=== PATIENT | male | born 1980 | race Caucasian/White ===

== ENCOUNTER → 2016-10-28 | Outpatient (CLI) | payer OTHER | END | disposition home or self-care (01) | LOC: LABWHC1 10:15 | PROVIDERS: ATTEND Psychiatry & Neurology Pain Medicine | DX: R56.9 Unspecified convulsions (principal); G40.909 Epilepsy, unspecified, not intractable, without status epilepticus | CPT/HCPCS: 36415; 80156; 80177 ==

== ENCOUNTER 2016-11-05 13:41 | Emergency (ER) | payer OTHER ==
[2016-11-05 13:51] LABS: Glucose,Whole Blood 178 mg/dL (75-99)
[2016-11-05] MEDS ORDERED: SODIUM CHLORIDE 0.9% 1,000 ML IV STA (13:55)
[2016-11-05] MEDS ORDERED: levETIRAcetam IV 1,000 MG in SALINE 1 100ML.BAG IVPB STA (13:56)
[2016-11-05 14:04] VITALS: BP 154/89; PULSE 105; RESP 28; TEMP 97.2
[2016-11-05] MEDS ORDERED: ONDANSETRON 4 MG/2 ML VIAL IVP STA (14:21)
[2016-11-05 14:37] LABS: Basophils # (A) 0.1 k/uL (0-0.2); Basophils % (A) 1 %; CH 30.8; CHCM 31.7; Eosinophils # (A) 0.2 k/uL (0-0.7); Eosinophils % (A) 1 %; HCT 55.4 % (39.0-53.0); HDW 2.29; HGB 17.4 gm/dL (13.0-17.5); Luc # (Auto) 0.41; Luc % (Auto) 2; Lymphocytes # (A) 3.3 k/uL (1.0-4.8); Lymphocytes % (A) 18 %; MCH 30.7 pg (25.0-35.0); MCHC 31.4 g/dL (31.0-37.0); MCV 97.8 fL (80.0-100.0); Monocytes # (A) 1.1 k/uL (0-1.0); Monocytes % (A) 6 %; Neutrophils # (A) 13.3 k/uL (1.3-7.7); Neutrophils % (A) 72 %; RBC 5.67 m/uL (4.30-5.90); RDW 12.8 % (11.5-15.5); WBC 18.5 k/uL (3.8-10.6); WBC (Perox) 19.03
[2016-11-05 14:51] LABS: ALT 39 U/L (21-72); AST 35 U/L (17-59); Alcohol <10 mg/dL; Alkaline Phosphatase 88 U/L (38-126); Anion Gap 36 mmol/L; Blood Urea Nitrogen 7 mg/dL (9-20); Calcium 9.8 mg/dL (8.4-10.2); Carbamazepine (Tegretol) 9.3 ug/mL; Chloride 110 mmol/L (98-107); Glucose 179 mg/dL (74-99); Non-African American GFR(MDRD) >60 (>60 ml/min/1.73 sqM); Potassium 3.8 mmol/L (3.5-5.1); Sodium 151 mmol/L (137-145); Total Bilirubin 0.3 mg/dL (0.2-1.3)
[2016-11-05 15:06] LABS: Carbon Dioxide <5 mmol/L (22-30)
--- NOTE | 2016-11-05 15:15 | ED ---
Seizure HPI - General Chief Complaint: Seizure Stated Complaint: unresponsive, poss seizure Source: patient, family, RN notes reviewed, old records reviewed Mode of arrival: ambulatory - History of Present Illness Initial Comments: 36-year-old male with known history of seizure disorder resents to the emergency department with 3 episodes of generalized tonic-clonic seizure activity. First episode lasted approximately 5 minutes with a 10 minute postictal phase, second episode again lasting around 5 minutes with a short postictal period and a third episode in the car on the way to the emergency department. Patient did have some non-generalized seizure-like activity prior to these episodes this morning. Patient voiced complaint of headache to his girlfriend prior to seizure. Patient is normally compliant with medications. Denies missing any doses last dose was at noon today. One episode of vomiting prior to arrival. No other complaints. - Related Data Home Medications Medication Instructions Recorded Confirmed carBAMazepine [TEGretol XR] 100 mg PO Q12H 11/05/16 11/05/16 carBAMazepine [TEGretol XR] 400 mg PO BID 11/05/16 11/05/16 levETIRAcetam [Keppra Xr] 1,500 tab PO BID 11/05/16 11/05/16 Allergies Allergy/AdvReac Type Severity Reaction Status Date / Time shellfish derived [Shellfish] Allergy Swelling Verified 11/05/16 14:57 Review of Systems ROS Statement: Those systems with pertinent positive or pertinent negative responses have been documented in the HPI. ROS Other: All systems not noted in ROS Statement are negative. Past Medical History Past Medical History: Seizure Disorder History of Any Multi-Drug Resistant Organisms: None Reported Past Surgical History: No Surgical Hx Reported Past Psychological History: No Psychological Hx Reported Smoking Status: Former smoker Past Alcohol Use History: None Reported Past Drug Use History: Marijuana General Exam Limitations: altered mental status General appearance: obtunded, in distress, other (Diaphoretic) Head exam: Present: atraumatic, normocephalic Eye exam: Present: normal appearance, PERRL, EOMI, nystagmus (Horizontal nystagmus) ENT exam: Present: normal exam, mucous membranes moist Neck exam: Present: normal inspection Respiratory exam: Present: normal lung sounds bilaterally. Absent: respiratory distress Cardiovascular Exam: Present: normal rhythm, tachycardia GI/Abdominal exam: Present: soft. Absent: distended, tenderness Rectal exam: Present: deferred Extremities exam: Present: normal inspection Back exam: Present: normal inspection Neurological exam: Present: altered, other (No focal neurological deficits, patient is moving all 4 extremities symmetrically.) Psychiatric exam: Present: agitated Skin exam: Present: warm, diaphoretic Course Vital Signs 11/05/16 13:52 Temperature 97.2 F L Pulse Rate 105 H Respiratory 28 H Rate Blood Pressure 154/89 O2 Sat by Pulse 94 L Oximetry - Reevaluation(s) Reevaluation #1: 11/05/16 15:10 Patient is reevaluated at 1410, for T 30, and 1500. Multiple conversations with the patient's family and significant other. Patient's mental status is improving. He is warm and dry heart rate stable. Neurologic examination remains nonfocal. Patient has no complaints. Reevaluation #2: 11/05/16 15:11 Nursing staff state that the patient refuses head CT and is refusing any further treatment or evaluation. Patient is reevaluated at this time. He is alert and oriented 3, stating that he wants to leave and does not want any further testing or intervention. P Medical Decision Making - Medical Decision Making 36-year-old male with known seizure disorder presents in status epilepticus. Patient had multiple episodes of tonic-clonic seizure over the period of approximately 30 minute with alterations in seizure and postictal state. Laboratory studies were obtained in the emergency department and revealed a significant elevation in lactic acidosis consistent with prolonged seizure. Patient receives IV hydration and IV Keppra. While awaiting computed tomography scan patient does regain consciousness and is alert and oriented 3. Patient states he does not want any further treatment or evaluation at this time. Patient is encouraged to remain in the hospital as he has had a prolonged seizure and prolonged postictal state and may require further treatment to control his seizures. He is aware of this stating that he wishes to leave without any further care. Patient is informed that prolonged seizure can and will result in brain damage and even . Patient again voices understanding of this. Patient's mother father at bedside. Despite encouragement from his parents he still refuses to stay. Patient was offered a short stay in the emergency department with IV hydration, IV antiepileptics, and discussion with his neurologist regarding dose adjustment of his medication. He refuses this as well. Patient will leave AGAINST MEDICAL ADVICE , however he does refuse to sign documentation. - Lab Data Result diagrams: 11/05/16 13:45 Lab Results 11/05/16 11/05/16 11/05/16 Range/Units 13:45 13:45 13:49 WBC 18.5 H (3.8-10.6) k/uL RBC 5.67 (4.30-5.90) m/uL Hgb 17.4 (13.0-17.5) gm/dL Hct 55.4 H (39.0-53.0) % MCV 97.8 (80.0-100.0) fL MCH 30.7 (25.0-35.0) pg MCHC 31.4 (31.0-37.0) g/dL RDW 12.8 (11.5-15.5) % Plt Count 201 (150-450) k/uL Neutrophils % 72 % Lymphocytes % 18 % Monocytes % 6 % Eosinophils % 1 % Basophils % 1 % Neutrophils # 13.3 H (1.3-7.7) k/uL Lymphocytes # 3.3 (1.0-4.8) k/uL Monocytes # 1.1 H (0-1.0) k/uL Eosinophils # 0.2 (0-0.7) k/uL Basophils # 0.1 (0-0.2) k/uL POC Glucose (mg/dL) 178 H (75-99) mg/dL POC Glu Crushing Machine Operator ID [place] Armenta Magnesium 3.3 H (1.6-2.3) mg/dL Disposition Clinical Impression: Generalized seizure, Intractable seizure disorder Disposition: Left Against Medical Advice Instructions: Recurrent Seizures in Adults (ED) Referrals: Anika Oneill MD [Primary Care Provider] - 1-2 days Charo Watson MD [STAFF PHYSICIAN] - 1-2 days
== END 2016-11-05 15:18 | disposition left against medical advice (07) ==
LOC: EC 13:41
DX: G40.419 Other generalized epilepsy and epileptic syndromes, intractable, without status epilepticus (principal); R41.82 Altered mental status, unspecified; R61 Generalized hyperhidrosis; H55.00 Unspecified nystagmus; R00.0 Tachycardia, unspecified; R45.1 Restlessness and agitation; Z87.891 Personal history of nicotine dependence; Z79.899 Other long term (current) drug therapy; Z91.013 Allergy to seafood
CPT/HCPCS: 36415; 93005; 80156; 80053; 80177; 83605; 83735; 85025; 80320; 99284; 96365; 96375; 96361; J2405; J1953

== ENCOUNTER 2016-11-13 10:24 | Inpatient (IN) | payer OTHER ==
[2016-11-13] MEDS ORDERED: SODIUM CHLORIDE 0.9% 1,000 ML IV STA ×2 (11:10)
[2016-11-13] MEDS ORDERED: MORPHINE SULFATE 4 MG/ML SYRINGE IV STA (11:10)
[2016-11-13] MEDS ORDERED: ONDANSETRON 4 MG/2 ML VIAL IVP STA (11:10)
[2016-11-13] MEDS ORDERED: MAG HYDROX/AL HYDROX/SIMETH 30 ML, HYOSCYAMINE ELIXIR 10 ML, CIMETIDINE HCL 300 MG, LID... PO STA ×4 (11:12)
[2016-11-13] MEDS ORDERED: hydrALAZINE HCL 20 MG/ML 1 ML VIAL IVP STA ×2 (11:31→13:20)
[2016-11-13 11:33] LABS: Basophils % (A) 0 %; CH 31.9; CHCM 36.7; Eosinophils # (A) 0.1 k/uL (0-0.7); Eosinophils % (A) 1 %; HCT 37.7 % (39.0-53.0); HDW 2.17; HGB 13.8 gm/dL (13.0-17.5); Luc # (Auto) 0.17; Luc % (Auto) 2; Lymphocytes # (A) 0.9 k/uL (1.0-4.8); Lymphocytes % (A) 10 %; MCH 31.9 pg (25.0-35.0); MCHC 36.5 g/dL (31.0-37.0); Mean Platelet Volume 9.5; Monocytes # (A) 0.8 k/uL (0-1.0); Monocytes % (A) 8 %; Neutrophils # (A) 7.6 k/uL (1.3-7.7); Neutrophils % (A) 80 %; RBC 4.32 m/uL (4.30-5.90); RDW 12.5 % (11.5-15.5); WBC 9.5 k/uL (3.8-10.6); WBC (Perox) 9.69
[2016-11-13 11:34] LABS: MCV 87.3 fL (80.0-100.0)
[2016-11-13 11:41] LABS: Calcium 8.7 mg/dL (8.4-10.2); Potassium 4.5 mmol/L (3.5-5.1); Total Bilirubin 0.7 mg/dL (0.2-1.3); Total Protein 6.7 g/dL (6.3-8.2)
[2016-11-13] MEDS ORDERED: SODIUM CHLORIDE 0.9% 2,000 ML IV STA (12:10)
--- NOTE | 2016-11-13 12:19 | XR ---
EXAMINATION TYPE: XR abdomen acute w cxr , 3 VIEWS DATE OF EXAM ORDERED: 11/13/2016 HISTORY: abd pain. COMPARISON: None. FINDINGS: The lungs are clear. Pleural spaces are clear. Heart size is upper limits of normal. Within the abdomen, the abdominal gas pattern is within normal limits. There is no evidence of obstru ction or free air. No unusual calcifications are seen. IMPRESSION: NO ACUTE THORACIC OR ABDOMINAL ABNORMALITY.
--- NOTE | 2016-11-13 13:10 | ED ---
General Adult HPI - General Chief complaint: Abdominal Pain Stated complaint: vomiting Time Seen by Provider: 11/13/16 11:03 Source: patient Mode of arrival: wheelchair Limitations: no limitations - History of Present Illness Initial comments: This 36-year-old white male presents with a complaint of some abdominal pain, back pain, as well as nausea and vomiting. He states that he was in the hospital emergency department on 11/05/2016. He apparently had 3 seizures that day. They were working him up and wanted to admit him to the hospital but he signed out AGAINST MEDICAL ADVICE. He states that he since that time he has had all of these symptoms. They do not appear to be getting any better. He denies any previous problems with his kidneys. He has never been in any renal failure in the past. He states that he has been drinking fluids well and eating okay but will vomit certain foods. He denies any alcohol or drug use. He denies any methanol or ethylene glycol ingestions. He does have the history of seizures but has not had any seizures since being in the ER previously. He denies any other complaints or modifying factors. - Related Data Home Medications Medication Instructions Recorded Confirmed carBAMazepine [TEGretol XR] 100 mg PO Q12H 11/05/16 11/13/16 carBAMazepine [TEGretol XR] 400 mg PO BID 11/05/16 11/13/16 levETIRAcetam [Keppra] 1,500 mg PO BID 11/13/16 11/13/16 Allergies Allergy/AdvReac Type Severity Reaction Status Date / Time shellfish derived [Shellfish] Allergy Swelling Verified 11/13/16 11:23 Review of Systems ROS Statement: Those systems with pertinent positive or pertinent negative responses have been documented in the HPI. ROS Other: All systems not noted in ROS Statement are negative. Past Medical History Past Medical History: Seizure Disorder History of Any Multi-Drug Resistant Organisms: None Reported Past Surgical History: No Surgical Hx Reported Past Psychological History: No Psychological Hx Reported Smoking Status: Current every day smoker Past Drug Use History: None Reported - Past Family History Mother Family Medical History: Pulmonary Embolus Father Family Medical History: Hypertension, Myocardial Infarction ([place]) Additional Family Medical History / Comment(s): Father had a [place] under the age of 60yrs. General Exam - General Exam Comments Initial Comments: GENERAL: The patient is well nourished and well hydrated. VITAL SIGNS: Heart rate, blood pressure, respiratory rate reviewed as recorded in nurse's notes. EYES: Pupils are round and reactive. Extraocular movements are intact. No conjunctival / lid redness or swelling. ENT: No external evidence of injury, swelling, or ecchymosis. Airway is patent. Throat is clear. NECK: Nontender. No swelling or evidence of injury. No subcutaneous emphysema. Trachea is midline. No thyroid mass. HEART: Regular rate and rhythm. Good peripheral pulses. LUNGS/CHEST: Breath sounds clear and equal bilaterally. No rales, rhonchi, or wheezes. No ecchymosis, subcutaneous emphysema, or tenderness. ABDOMEN: There is mild tenderness primarily in the midepigastric region. No palpable masses or organomegaly. No peritoneal signs. No abdominal wall swelling or ecchymosis. The patient also has bilateral flank tenderness minimally. EXTREMITIES: No extremity tenderness. Normal muscle tone and function. No thoracolumbar tenderness. NEUROLOGIC: Sensation is grossly intact. Cranial nerve exam reveals face is symmetrical, tongue is midline, speech is clear. SKIN: No abrasions or ecchymosis is noted. No induration or masses noted. PSYCHIATRIC: Alert and oriented. Appropriate behavior and judgment. Limitations: no limitations Course Vital Signs 11/13/16 11/13/16 11/13/16 10:29 12:44 13:00 Temperature 97.0 F L 98.7 F Pulse Rate 67 67 80 Respiratory 17 18 20 Rate Blood Pressure 199/117 189/117 180/100 O2 Sat by Pulse 95 96 95 Oximetry 11/13/16 14:03 Temperature 98.7 F Pulse Rate 81 Respiratory 20 Rate Blood Pressure 171/101 O2 Sat by Pulse 94 L Oximetry Medical Decision Making - Medical Decision Making The patient was seen and examined. All diagnostics were reviewed. The EKG shows a normal sinus rhythm at a rate of 71. There is no acute ST-T wave changes noted. The MO interval is 190, the QRS duration is 102, and the QTc interval is 471. The laboratory shows a severely elevated creatinine at 19.4. His creatinine 1 week ago was normal. The CO2 is low at 15. Remainder of laboratory is reviewed. The acute abdominal series does not show any acute process. The exact cause of his acute renal failure is not definitively determined. It is felt as though the possibility of rhabdomyolysis certainly is plausible. Additional labs including a CPK are ordered. The case is discussed with Dr. Mendez at 12:30 PM and treatment recommendations are obtained. We will hold off on any dialysis at this time. The case also was discussed with Dr. Burks who is agreeable to admission. - Lab Data Result diagrams: 11/13/16 10:56 11/13/16 10:56 Lab Results 11/13/16 11/13/16 Range/Units 10:56 10:56 WBC 9.5 (3.8-10.6) k/uL RBC 4.32 (4.30-5.90) m/uL Hgb 13.8 D (13.0-17.5) gm/dL Hct 37.7 L (39.0-53.0) % MCV 87.3 D (80.0-100.0) fL MCH 31.9 (25.0-35.0) pg MCHC 36.5 (31.0-37.0) g/dL RDW 12.5 (11.5-15.5) % Plt Count 149 L (150-450) k/uL Neutrophils % 80 % Lymphocytes % 10 % Monocytes % 8 % Eosinophils % 1 % Basophils % 0 % Neutrophils # 7.6 (1.3-7.7) k/uL Lymphocytes # 0.9 L (1.0-4.8) k/uL Monocytes # 0.8 (0-1.0) k/uL Eosinophils # 0.1 (0-0.7) k/uL Basophils # 0.0 (0-0.2) k/uL Sodium 133 L (137-145) mmol/L Potassium 4.5 (3.5-5.1) mmol/L Chloride 92 L (98-107) mmol/L Carbon Dioxide 15 L (22-30) mmol/L Anion Gap 26 mmol/L BUN 88 H* (9-20) mg/dL Creatinine 19.45 H* (0.66-1.25) mg/dL Est GFR (MDRD) Af Amer 3 (>60 ml/min/1.73 sqM) Est GFR (MDRD) Non-Af 3 (>60 ml/min/1.73 sqM) Glucose 86 (74-99) mg/dL Calcium 8.7 (8.4-10.2) mg/dL Total Bilirubin 0.7 (0.2-1.3) mg/dL AST 11 L (17-59) U/L ALT 26 (21-72) U/L Alkaline Phosphatase 79 (38-126) U/L Total Protein 6.7 (6.3-8.2) g/dL Albumin 4.0 (3.5-5.0) g/dL Amylase 49 (30-110) U/L Lipase 50 (23-300) U/L Disposition Clinical Impression: Acute kidney injury, Abdominal pain, Nausea and vomiting, Hypertensive crisis, Marijuana abuse Disposition: ADMITTED IP TO THIS [facility] Condition: Fair Time of Disposition: 13:10 Decision Date: 11/13/16 Decision Time: 13:10
[2016-11-13] MEDS ORDERED: NALOXONE 0.4 MG/ML 1 ML VIAL IV PRN (13:11)
[2016-11-13] MEDS ORDERED: MORPHINE SULFATE 4 MG/ML SYRINGE IV PRN (13:11)
[2016-11-13] MEDS ORDERED: SODIUM BICARBONATE TAB 650 MG TAB PO STA (13:13)
[2016-11-13] MEDS ORDERED: PANTOPRAZOLE 40 MG/10 ML VIAL IV STA (13:32)
[2016-11-13 14:33] LABS: Appearance,Urine Clear (Clear); Bacteria,Urine Rare /hpf; Bilirubin,Urine Negative (Negative); Glucose,Urine (UA) Negative (Negative); Ketones,Urine Trace (Negative); Leukocyte Esterase,Urine Negative (Negative); Mucus,Urine Rare /hpf; Nitrite,Urine Negative (Negative); Particle Count 1216; Protein,Urine 2+ (Negative); RBC,Urine 2 /hpf (0-5); Specific Gravity,Urine 1.005 (1.001-1.035); Squamous Epithelial Cell,Urine <1 /hpf (0-4); UA Billing (MACRO vs. MICRO) MICRO; Urobilinogen,Urine <2.0 mg/dL (<2.0); WBC,Urine 4 /hpf (0-5)
--- NOTE | 2016-11-13 15:05 | US ---
EXAMINATION TYPE: US kidneys/renal and bladder DATE OF EXAM: 11/13/2016 COMPARISON: NONE CLINICAL HISTORY: hugo. EXAM MEASUREMENTS: Right Kidney: 12.7 x 6.5 x 7.2 cm Left Kidney: 14.0 x 6.3 x 5.6 cm Right Kidney: stone identified at mid pole Left Kidney: No hydronephrosis or masses seen, Bladder: empty There is an 8 mm, nonobstructing calculus in the upper pole of the right kidney. The kidneys are othe rwise morphologically normal. IMPRESSION: NONOBSTRUCTING RIGHT-SIDED NEPHROLITHIASIS.
[2016-11-13] MEDS: SODIUM CHLORIDE 0.9% 1,000 ML IV SCH ×2 (15:10→17:21)
[2016-11-13 15:20] LABS: Calcium 8.2 mg/dL (8.4-10.2); Carbamazepine (Tegretol) 8.5 ug/mL; Potassium 4.5 mmol/L (3.5-5.1)
[2016-11-13] MEDS: ONDANSETRON 4 MG/2 ML VIAL IVP PRN ×2 (15:25→22:00)
[2016-11-13 15:33] LABS: Creatine Kinase MB 1.1 ng/mL (0.0-2.4); Troponin I 0.017 ng/mL (0.000-0.034)
[2016-11-13] MEDS: SODIUM BICARBONATE TAB 650 MG TAB PO SCH (17:22)
--- NOTE | 2016-11-13 17:24 | P.HPIM ---
History of Present Illness H&P Date: 11/13/16 Chief Complaint: Difficulty breathing This is a 36-year-old gentleman with history of generalized seizures maintain on tegretol and keepra, apparently has had prolonged period of seizures on last Thursday. Patient however went AGAINST MEDICAL ADVICE home. Thereafter patient has not been his usual self according to his fiance was a bedside. Patient has a long history of seizure disorder and depression. Patient states that he has diffuse abdominal pain no other problems reported. Patient apparently has not been able to tolerate any oral intake and has been vomiting significantly over the same period of time Patient came to the hospital was noted to have a significantly elevated renal function which is new from last Thursday. Patient was noted to have an anion gap metabolic acidosis which was also noted in the laboratory data done last week Patient denies using any illicit drugs or graft urine drug screen was noted to be positive for opiates and marijuana No fevers headaches blurry vision nausea chest pain diarrhea lower extremity edema next tetanus is reported Patient name complaints are some difficulty breathing Review of Systems All systems: negative (noted in HPI) Past Medical History Past Medical History: Seizure Disorder Additional Past Medical History / Comment(s): Last seizures 11/05/16 x 3. History of Any Multi-Drug Resistant Organisms: None Reported Past Surgical History: No Surgical Hx Reported Past Anesthesia/Blood Transfusion Reactions: No Reported Reaction Past Psychological History: No Psychological Hx Reported Smoking Status: Current every day smoker Past Drug Use History: None Reported - Past Family History Mother Family Medical History: Pulmonary Embolus Father Family Medical History: Hypertension, Myocardial Infarction ([place]) Additional Family Medical History / Comment(s): Father had a [place] under the age of 60yrs. Medications and Allergies Home Medications Medication Instructions Recorded Confirmed Type carBAMazepine [TEGretol XR] 100 mg PO Q12H 11/05/16 11/13/16 History carBAMazepine [TEGretol XR] 400 mg PO BID 11/05/16 11/13/16 History levETIRAcetam [Keppra] 1,500 mg PO BID 11/13/16 11/13/16 History Allergies Allergy/AdvReac Type Severity Reaction Status Date / Time shellfish derived [Shellfish] Allergy Swelling Verified 11/13/16 11:23 Physical Exam Vitals: Vital Signs Temp Pulse Pulse Resp BP BP Pulse Ox 11/13/16 15:35 89 20 11/13/16 15:26 97.8 F 89 20 193/109 96 11/13/16 15:11 98.6 F 80 18 178/98 95 11/13/16 14:03 98.7 F 81 20 171/101 94 L 11/13/16 13:00 80 20 180/100 95 11/13/16 12:44 98.7 F 67 18 189/117 96 11/13/16 10:29 97.0 F L 67 17 199/117 95 Intake and Output 11/13/16 11/13/16 11/13/16 06:59 14:59 22:59 Intake Total 2350 Balance 2350 Intake: Intake, IV Titration 2350 Amount Sodium Chloride 0.9% 1, 200 000 ml @ 100 mls/hr IV . Q10H STA Rx#:[id number] Sodium Chloride 0.9% 1, 150 000 ml @ 50 mls/hr IV . Q20H [facility] Rx#:[id number] Sodium Chloride 0.9% 1, 1000 000 ml @ 999 mls/hr IV . Q1H1M STA Rx#:[id number] Sodium Chloride 0.9% 2, 1000 000 ml @ 999 mls/hr IV . Q2H1M STA Rx#:[id number] Other: Weight 90.718 kg Patient Weight 11/14/16 06:59 Weight 90.718 kg Physical exam Gen. appearance oriented 3 in no distress Neck is supple no JVD Lungs diminished breath sounds at the bases trace crackles Patient appears anxious Heart S1-S2 heard regular rate and rhythm no murmurs appreciated Abdomen is soft nontender no organomegaly bowel sounds are intact Neurologically cranial nerves II-12 grossly intact no focal motor or sensory deficits noted Skin no abnormalities appreciated Results CBC & Chem 7: 11/13/16 10:56 11/13/16 14:54 Labs: Abnormal Lab Results - Last 24 Hours (Table) 11/13/16 11/13/16 11/13/16 Range/Units 10:56 10:56 14:07 Hct 37.7 L (39.0-53.0) % Plt Count 149 L (150-450) k/uL Lymphocytes # 0.9 L (1.0-4.8) k/uL Sodium 133 L (137-145) mmol/L Chloride 92 L (98-107) mmol/L Carbon Dioxide 15 L (22-30) mmol/L BUN 88 H* (9-20) mg/dL Creatinine 19.45 H* (0.66-1.25) mg/dL Calcium (8.4-10.2) mg/dL AST 11 L (17-59) U/L Urine Protein 2+ H (Negative) Urine Ketones Trace H (Negative) Urine Bacteria Rare H (None) /hpf Urine Mucus Rare H (None) /hpf Urine Opiates Screen (NotDetected) U Marijuana (THC) Screen (NotDetected) 11/13/16 11/13/16 Range/Units 14:07 14:54 Hct (39.0-53.0) % Plt Count (150-450) k/uL Lymphocytes # (1.0-4.8) k/uL Sodium 136 L (137-145) mmol/L Chloride 97 L (98-107) mmol/L Carbon Dioxide 15 L (22-30) mmol/L BUN 85 H* (9-20) mg/dL Creatinine 18.40 H* (0.66-1.25) mg/dL Calcium 8.2 L (8.4-10.2) mg/dL AST (17-59) U/L Urine Protein (Negative) Urine Ketones (Negative) Urine Bacteria (None) /hpf Urine Mucus (None) /hpf Urine Opiates Screen Detected H (NotDetected) U Marijuana (THC) Screen Detected H (NotDetected) Thrombosis Risk Factor Assmnt - Choose All That Apply Any of the Below Risk Factors Present?: Yes Each Factor Represents 1 point: Obesity (BMI >25) Other Risk Factors: No Other congenital or acquired thrombophilia - If yes, enter type in comment: No Thrombosis Risk Factor Assessment Total Risk Factor Score: 1 Thrombosis Risk Factor Assessment Level: Low Risk Assessment and Plan Plan: #1 acute kidney injury unknown etiology #2 seizure disorder with prolonged seizure episode a week ago #3 anxiety #4 history of depression #5 large anion gap metabolic acidosis which is likely due to high BUN Plan Continue with IV hydration Patient's bladder ultrasound is noted UAs noted a urine protein and creatinine ratio will be done Drug screen was noted discussed the case with the family A nephrology consultation will also be obtained
[2016-11-13] MEDS: ACETAMINOPHEN TAB 325 MG TAB PO PRN ×2 (17:39→23:10)
[2016-11-13] MEDS: NITROGLYCERIN OINT 1 INCH/GM PACKET TOPICAL SCH (19:07)
[2016-11-14] MEDS: SODIUM BICARBONATE TAB 650 MG TAB PO SCH ×4 (04:24→20:51)
[2016-11-14] MEDS: NITROGLYCERIN OINT 1 INCH/GM PACKET TOPICAL SCH ×3 (04:25→17:31)
[2016-11-14 06:54] LABS: Calcium 8.2 mg/dL (8.4-10.2); Magnesium 2.3 mg/dL (1.6-2.3); Potassium 4.8 mmol/L (3.5-5.1)
[2016-11-14 07:09] LABS: Phosphorous 9.9 mg/dL (2.5-4.5)
[2016-11-14] MEDS: IPRATROPIUM-ALBUTEROL 3 ML NEB INHALATION PRN ×2 (07:50→20:01)
[2016-11-14 08:30] LABS: Ethanol Negative (Negative); Isopropanol Negative (Negative)
[2016-11-14] MEDS ORDERED: ENOXAPARIN 40 MG/0.4 ML SYRINGE SQ SCH (09:00)
[2016-11-14] MEDS ORDERED: PANTOPRAZOLE 40 MG/10 ML VIAL IV SCH (09:00)
--- NOTE | 2016-11-14 09:45 | P.NPCON ---
History of Present Illness - Reason for Consult acute renal failure - History of Present Illness Reason for consultation: Acute kidney injury History of present illness: Patient is a 36-year-old male seen in renal consultation for acute kidney injury. His baseline creatinine is near 1 and was elevated at 19.4 on admission. It is 18.7 today. Patient was recently admitted about a week ago for seizures. Since discharge he hasn't been eating and drinking much at all. He's been having episodes of vomiting almost on a daily basis. Denies any diarrhea. He also admits to taking 2 doses of Motrin 800 mg in the past week. He denies any difficulty with urination. No hematuria or dysuria. Denies any family history of renal disease. No seizure episodes in the last week. He denies any form of alcohol intake and denies any suicidal ideation. His urine output overnight was 400 mL. He refused a Kruger catheter placement. He remains acidotic with a bicarb level of 13 this morning. His CK level is 128. Urinalysis reveals no evidence of hematuria. Proteinuria noted. Renal ultrasound revealed no evidence of hydronephrosis. Blood pressure was elevated on admission with systolic blood pressure in the 190s. Better controlled now. Vital signs are stable. General: The patient appeared well nourished and normally developed. HEENT: Head exam is unremarkable. Neck is without jugular venous distension. LUNGS: Lungs are clear to auscultation and percussion. Breath sounds decreased. HEART: Rate and Rhythm are regular. First and second heart sounds normal. No murmurs, rubs or gallops. ABDOMEN: Abdominal exam reveals normal bowel sounds. Non-tender and non- distended. No evidence of peritonitis. EXTREMITITES: No clubbing, cyanosis, or edema. Past Medical History Past Medical History: Seizure Disorder Additional Past Medical History / Comment(s): Last seizures 11/05/16 x 3. History of Any Multi-Drug Resistant Organisms: None Reported Past Surgical History: No Surgical Hx Reported Past Anesthesia/Blood Transfusion Reactions: No Reported Reaction Past Psychological History: No Psychological Hx Reported Smoking Status: Current every day smoker Past Drug Use History: None Reported - Past Family History Mother Family Medical History: Pulmonary Embolus Father Family Medical History: Hypertension, Myocardial Infarction ([place]) Additional Family Medical History / Comment(s): Father had a [place] under the age of 60yrs. Medications and Allergies Home Medications Medication Instructions Recorded Confirmed Type carBAMazepine [TEGretol XR] 100 mg PO Q12H 11/05/16 11/13/16 History carBAMazepine [TEGretol XR] 400 mg PO BID 11/05/16 11/13/16 History levETIRAcetam [Keppra] 1,500 mg PO BID 11/13/16 11/13/16 History Allergies Allergy/AdvReac Type Severity Reaction Status Date / Time shellfish derived [Shellfish] Allergy Swelling Verified 11/13/16 11:23 Physical Exam Vitals: Vital Signs Temp Pulse Pulse Resp BP BP Pulse Ox 11/14/16 08:00 96.3 F L 85 18 169/97 95 11/14/16 07:53 98 11/14/16 07:51 80 14 11/14/16 05:59 96.9 F L 83 18 165/93 92 L 11/14/16 05:36 20 90 L 11/14/16 04:00 82 20 157/88 93 L 11/14/16 00:00 79 19 169/99 96 11/13/16 20:00 81 19 162/89 98 11/13/16 15:35 89 20 11/13/16 15:26 97.8 F 89 20 193/109 96 11/13/16 15:11 98.6 F 80 18 178/98 95 11/13/16 14:03 98.7 F 81 20 171/101 94 L 11/13/16 13:00 80 20 180/100 95 11/13/16 12:44 98.7 F 67 18 189/117 96 11/13/16 10:29 97.0 F L 67 17 199/117 95 Intake and Output 11/13/16 11/14/16 11/14/16 22:59 06:59 14:59 Intake Total 2530 500 60 Output Total 350 50 Balance 2180 450 60 Intake: IV 500 Sodium Chloride 0.9% 1, 500 000 ml @ 50 mls/hr IV . Q20H [facility] Rx#:[id number] Intake, IV Titration 2350 Amount Sodium Chloride 0.9% 1, 200 000 ml @ 100 mls/hr IV . Q10H [facility] Rx#:[id number] Sodium Chloride 0.9% 1, 150 000 ml @ 50 mls/hr IV . Q20H [facility] Rx#:[id number] Sodium Chloride 0.9% 1, 1000 000 ml @ 999 mls/hr IV . Q1H1M [facility] Rx#:[id number] Sodium Chloride 0.9% 2, 1000 000 ml @ 999 mls/hr IV . Q2H1M [facility] Rx#:[id number] Oral 180 60 Output: Urine 350 Emesis 50 Other: Voiding Method Urinal Urinal Urinal Weight 102.7 kg Results - Lab Results Most recent lab results Calcium 8.2 mg/dL (8.4-10.2) L 11/14/16 06:03 Phosphorus 9.9 mg/dL (2.5-4.5) H* 11/14/16 06:03 Magnesium 2.3 mg/dL (1.6-2.3) 11/14/16 06:03 11/13/16 10:56 11/14/16 06:03 Assessment and Plan Plan: Assessment: #1. Acute kidney injury secondary to ischemic ATN secondary to severe intravascular volume depletion from vomiting, poor oral intake and use of NSAIDs. Baseline creatinine is 1 and elevated at 19.4 on admission. It is 18.7 today. Urinalysis reveals no evidence of hematuria. Proteinuria can be nonspecific in the setting of acute kidney injury. No evidence of hydronephrosis. Urine eosinophils negative. #2. Anion gap metabolic acidosis secondary to acute kidney injury. Alcohol levels have been negative. Lactic acid level normal. No evidence of DKA. #3. Hyperphosphatemia secondary to acute kidney injury. #4. Hypertension. Uncontrolled. #5. History of seizures. Plan: Continue normal saline to be run at 50 mL an hour. Maintain oral sodium bicarbonate 1300 mg 3 times daily. Check serologies including hepatitis panel, ILDEFONSO, electrophoresis studies. Strict I's and os. Add PhosLo 667 mg 3 times daily with meals. Add amlodipine 5 mg once daily. I discussed with the patient and his mother the need for renal replacement therapy due to severe renal failure and low urine output. Renal replacement therapy will also help with metabolic control. Consult vascular surgery for catheter placement. First treatment of hemodialysis today with low blood flows and no ultrafiltration. Reassess again tomorrow. Thank you for the consultation. I will continue to follow the patient with you during his hospital stay.
[2016-11-14] MEDS: ONDANSETRON 4 MG/2 ML VIAL IVP PRN (10:16)
--- NOTE | 2016-11-14 10:36 | P.PN ---
Subjective This is a 36-year-old gentleman with history of generalized seizures maintain on tegretol and keepra, apparently has had prolonged period of seizures on last Thursday. Patient however went AGAINST MEDICAL ADVICE home. Thereafter patient has not been his usual self according to his fiance was a bedside. Patient has a long history of seizure disorder and depression. Patient states that he has diffuse abdominal pain no other problems reported. Patient apparently has not been able to tolerate any oral intake and has been vomiting significantly over the same period of time Patient came to the hospital was noted to have a significantly elevated renal function which is new from last Thursday. Patient was noted to have an anion gap metabolic acidosis which was also noted in the laboratory data done last week Patient denies using any illicit drugs or graft urine drug screen was noted to be positive for opiates and marijuana No fevers headaches blurry vision nausea chest pain diarrhea lower extremity edema next tetanus is reported Patient name complaints are some difficulty breathing 77 2016 States that his breathing is improved today Denies having any headaches blurry vision nausea vomiting diarrhea does have intermittent episodes of queasiness however is able to tolerate breakfast today Objective - Vital Signs Vital signs: Vital Signs Temp 96.3 F L 11/14/16 08:00 Pulse 80 11/14/16 08:01 Resp 14 11/14/16 08:01 BP 169/97 11/14/16 08:00 Pulse Ox 95 11/14/16 08:00 Intake & Output 11/13/16 11/14/16 11/14/16 18:59 06:59 18:59 Intake Total 2530 500 60 Output Total 400 Balance 2530 100 60 Weight 90.718 kg 102.7 kg Intake: IV 500 Sodium Chloride 0.9% 1, 500 000 ml @ 50 mls/hr IV . Q20H [facility] Rx#:[id number] Intake, IV Titration 2350 Amount Sodium Chloride 0.9% 1, 200 000 ml @ 100 mls/hr IV . Q10H [facility] Rx#:[id number] Sodium Chloride 0.9% 1, 150 000 ml @ 50 mls/hr IV . Q20H [facility] Rx#:[id number] Sodium Chloride 0.9% 1, 1000 000 ml @ 999 mls/hr IV . Q1H1M [facility] Rx#:[id number] Sodium Chloride 0.9% 2, 1000 000 ml @ 999 mls/hr IV . Q2H1M [facility] Rx#:[id number] Oral 180 60 Output: Urine 350 Emesis 50 Other: Voiding Method Urinal Urinal - Exam Physical exam Gen. appearance oriented 3 in no distress Neck is supple no JVD Lungs good air entry clear to auscultation no rhonchi or wheezing Heart S1-S2 heard regular rate and rhythm no murmurs appreciated Abdomen is soft nontender no organomegaly bowel sounds are intact Neurologically cranial nerves II-12 grossly intact no focal motor or sensory deficits noted Skin no abnormalities appreciated - Labs CBC & Chem 7: 11/13/16 10:56 11/14/16 06:03 Labs: Abnormal Lab Results - Last 24 Hours (Table) 11/13/16 11/13/16 11/13/16 Range/Units 10:56 10:56 14:07 Hct 37.7 L (39.0-53.0) % Plt Count 149 L (150-450) k/uL Lymphocytes # 0.9 L (1.0-4.8) k/uL Sodium 133 L (137-145) mmol/L Chloride 92 L (98-107) mmol/L Carbon Dioxide 15 L (22-30) mmol/L BUN 88 H* (9-20) mg/dL Creatinine 19.45 H* (0.66-1.25) mg/dL Calcium (8.4-10.2) mg/dL Phosphorus (2.5-4.5) mg/dL AST 11 L (17-59) U/L Urine Protein 2+ H (Negative) Urine Ketones Trace H (Negative) Urine Bacteria Rare H (None) /hpf Urine Mucus Rare H (None) /hpf U Random Total Protein (<12) mg/dL Urine Opiates Screen (NotDetected) U Marijuana (THC) Screen (NotDetected) 11/13/16 11/13/16 11/13/16 Range/Units 14:07 14:54 19:00 Hct (39.0-53.0) % Plt Count (150-450) k/uL Lymphocytes # (1.0-4.8) k/uL Sodium 136 L (137-145) mmol/L Chloride 97 L (98-107) mmol/L Carbon Dioxide 15 L (22-30) mmol/L BUN 85 H* (9-20) mg/dL Creatinine 18.40 H* (0.66-1.25) mg/dL Calcium 8.2 L (8.4-10.2) mg/dL Phosphorus (2.5-4.5) mg/dL AST (17-59) U/L Urine Protein (Negative) Urine Ketones (Negative) Urine Bacteria (None) /hpf Urine Mucus (None) /hpf U Random Total Protein 152 H (<12) mg/dL Urine Opiates Screen Detected H (NotDetected) U Marijuana (THC) Screen Detected H (NotDetected) 11/14/16 Range/Units 06:03 Hct (39.0-53.0) % Plt Count (150-450) k/uL Lymphocytes # (1.0-4.8) k/uL Sodium 135 L (137-145) mmol/L Chloride (98-107) mmol/L Carbon Dioxide 13 L (22-30) mmol/L BUN 88 H* (9-20) mg/dL Creatinine 18.77 H* (0.66-1.25) mg/dL Calcium 8.2 L (8.4-10.2) mg/dL Phosphorus 9.9 H* (2.5-4.5) mg/dL AST (17-59) U/L Urine Protein (Negative) Urine Ketones (Negative) Urine Bacteria (None) /hpf Urine Mucus (None) /hpf U Random Total Protein (<12) mg/dL Urine Opiates Screen (NotDetected) U Marijuana (THC) Screen (NotDetected) Assessment and Plan Plan: #1 acute kidney injury unknown etiology #2 seizure disorder with prolonged seizure episode a week ago #3 anxiety #4 history of depression Plan Patient is to undergo hemodialysis. GN workup was initiated by nephrology Breathing treatments Discussed the case with the patient. Vascular surgery consultation Start the patient on a 75% Tegretol dose after hemodialysis
[2016-11-14 11:08] LABS: Hepatitis B Surface Ag Index 0.04
[2016-11-14 11:14] LABS: Hepatitis B Core IgM Index 0.01
[2016-11-14 11:25] LABS: Hepatitis C Virus IgG Ab Negative (Negative); Hepatitis C Virus IgG Index 0.02
[2016-11-14] MEDS: ACETAMINOPHEN TAB 325 MG TAB PO PRN ×3 (11:47→19:51)
[2016-11-14] MEDS: CALCIUM ACETATE 667 MG CAP PO SCH ×2 (11:48→20:50)
[2016-11-14] MEDS: amLODIPine 5 MG TAB PO SCH (11:48)
[2016-11-14] MEDS: SODIUM CHLORIDE 0.9% 1,000 ML IV SCH (15:42)
[2016-11-14] MEDS ORDERED: IV FLUID CONTINUATION 1,000 ML IV ONE (18:41)
[2016-11-14] MEDS ORDERED: LIDOCAINE 2% INJ 20 MG/ML SQ ONE (19:08)
--- NOTE | 2016-11-14 19:23 | P.GSCN ---
History of Present Illness History of present illness: 36 white male, history of acute kidney injury with high BUN/creatinine I was consulted for placement of a dialysis catheter and graft medical history No history of diabetes coronary artery disease Surgical history no history of any major surgical illness On examination neck is supple no bruit appreciated Chest clear first and second sound normal Abdomen soft nontender Vascular examination brachial radial femoral pulses are present i Impression acute renal failure plan is placement of the dialysis catheter risk and complication discussed Past Medical History Past Medical History: Seizure Disorder Additional Past Medical History / Comment(s): Last seizures 11/05/16 x 3. History of Any Multi-Drug Resistant Organisms: None Reported Past Surgical History: No Surgical Hx Reported Past Anesthesia/Blood Transfusion Reactions: No Reported Reaction Past Psychological History: No Psychological Hx Reported Smoking Status: Current every day smoker Past Drug Use History: None Reported - Past Family History Mother Family Medical History: Pulmonary Embolus Father Family Medical History: Hypertension, Myocardial Infarction ([place]) Additional Family Medical History / Comment(s): Father had a [place] under the age of 60yrs. Medications and Allergies Home Medications Medication Instructions Recorded Confirmed Type carBAMazepine [TEGretol XR] 100 mg PO Q12H 11/05/16 11/13/16 History carBAMazepine [TEGretol XR] 400 mg PO BID 11/05/16 11/13/16 History levETIRAcetam [Keppra] 1,500 mg PO BID 11/13/16 11/13/16 History Allergies Allergy/AdvReac Type Severity Reaction Status Date / Time shellfish derived [Shellfish] Allergy Swelling Verified 11/13/16 11:23 Surgical - Exam Vital Signs Temp Pulse Resp BP Pulse Ox 97.0 F L 67 17 199/117 95 11/13/16 10:29 11/13/16 10:29 11/13/16 10:29 11/13/16 10:29 11/13/16 10:29 Results - Labs 11/13/16 10:56 11/14/16 06:03 Abnormal Lab Results - Last 24 Hours (Table) 11/13/16 11/14/16 11/14/16 Range/Units 19:00 06:03 06:03 Sodium 135 L (137-145) mmol/L Carbon Dioxide 13 L (22-30) mmol/L BUN 88 H* (9-20) mg/dL Creatinine 18.77 H* (0.66-1.25) mg/dL Calcium 8.2 L (8.4-10.2) mg/dL Phosphorus 9.9 H* (2.5-4.5) mg/dL Total Protein (PEP) 5.9 L (6.2-8.2) g/dL U Random Total Protein 152 H (<12) mg/dL Diabetes panel 11/14/16 Range/Units 06:03 Sodium 135 L (137-145) mmol/L Potassium 4.8 (3.5-5.1) mmol/L Chloride 99 (98-107) mmol/L Carbon Dioxide 13 L (22-30) mmol/L BUN 88 H* (9-20) mg/dL Creatinine 18.77 H* (0.66-1.25) mg/dL Glucose 75 (74-99) mg/dL Calcium 8.2 L (8.4-10.2) mg/dL Calcium panel 11/14/16 Range/Units 06:03 Calcium 8.2 L (8.4-10.2) mg/dL Phosphorus 9.9 H* (2.5-4.5) mg/dL Pituitary panel 11/14/16 Range/Units 06:03 Sodium 135 L (137-145) mmol/L Potassium 4.8 (3.5-5.1) mmol/L Chloride 99 (98-107) mmol/L Carbon Dioxide 13 L (22-30) mmol/L BUN 88 H* (9-20) mg/dL Creatinine 18.77 H* (0.66-1.25) mg/dL Glucose 75 (74-99) mg/dL Calcium 8.2 L (8.4-10.2) mg/dL Adrenal panel 11/14/16 Range/Units 06:03 Sodium 135 L (137-145) mmol/L Potassium 4.8 (3.5-5.1) mmol/L Chloride 99 (98-107) mmol/L Carbon Dioxide 13 L (22-30) mmol/L BUN 88 H* (9-20) mg/dL Creatinine 18.77 H* (0.66-1.25) mg/dL Glucose 75 (74-99) mg/dL Calcium 8.2 L (8.4-10.2) mg/dL
--- NOTE | 2016-11-14 19:26 | P.PCN ---
Preoperative Diagnosis: Postoperative Diagnosis: Procedure(s) Performed: Implants: Indications for Procedure: Operative Findings: Description of Procedure: Noses acute renal failure Procedure this point of 20 same dialysis catheter right femoral approach ultrasound guided Patient brought to the Pick Up Operator, right groin were prepped and draped applied in standard manner ultrasound-guided needle was introduced to right femoral vein micropuncture guidewire was passed and 4-Macedonian dilator advanced. The top of the guidewire then regular guidewire was passed and dilator were advanced top of guidewire and then 20 same dialysis catheter right vas on the top of the guidewire there was a good flow noted flushed with heparin saline and Hep-Lock with heparin secured with 3-0 nylon dressing applied patient for the procedure well
[2016-11-14] MEDS: carBAMazepine 200 MG TAB PO SCH (20:53)
[2016-11-14] MEDS: hydrALAZINE HCL 20 MG/ML 1 ML VIAL IVP PRN (21:49)
[2016-11-15] MEDS: IPRATROPIUM-ALBUTEROL 3 ML NEB INHALATION PRN ×3 (00:08→23:43)
[2016-11-15] MEDS: ACETAMINOPHEN TAB 325 MG TAB PO PRN ×3 (00:27→23:43)
[2016-11-15] MEDS: NITROGLYCERIN OINT 1 INCH/GM PACKET TOPICAL SCH ×4 (00:28→17:28)
[2016-11-15] MEDS: CALCIUM ACETATE 667 MG CAP PO SCH ×3 (06:41→17:24)
[2016-11-15] MEDS: PANTOPRAZOLE 40 MG TABLET PO SCH (06:41)
[2016-11-15 07:00] LABS: Calcium 8.3 mg/dL (8.4-10.2); Potassium 4.3 mmol/L (3.5-5.1)
--- NOTE | 2016-11-15 08:38 | P.PN ---
Subjective Principal diagnosis: This is a 36-year-old patient with dialysis dependent acute kidney injury from volume depletion and nonsteroidals. He had his first dialysis yesterday late last night 11:30 PM. His main 7 50 mL of urine since then. He is not feeling significantly improved though. Feels tired and fatigued. No nausea vomiting had a good appetite but after taking his morning pills on an empty stomach he first and nauseated. Last night he had good general though. Denies any fever chills shortness of breath. Has mild cough. No hemoptysis epistaxis. He has a right groin Rhys catheter Objective - Vital Signs Vital signs: Vital Signs Temp 98.5 F 11/15/16 04:00 Pulse 92 11/15/16 07:40 Resp 18 11/15/16 04:00 BP 144/85 11/15/16 04:00 Pulse Ox 95 11/15/16 07:29 Intake & Output 11/14/16 11/15/16 11/15/16 18:59 06:59 18:59 Intake Total 520 550 Output Total 500 250 Balance 20 300 Weight 101.7 kg Intake: IV 100 550 Sodium Chloride 0.9% 1, 550 000 ml @ 50 mls/hr IV . Q20H [facility] Rx#:[id number] Oral 420 Output: Urine 500 250 Other: Voiding Method Urinal Urinal # Voids 2 1 And examinations awake alert oriented. Seems to be comfortable. HEENT exam no JVP neck is supple no facial asymmetry Lungs are significant for fine crackles at both bases not clear but cough. Good air entry no dullness to percussion. Recent x-ray was done on 11/13/2016 2 days ago and does not show any pulmonary edema Heart sounds are unremarkable for any murmur rub gallop Abdomen soft nontender no masses felt Extremity exam was trace edema Neurologically awake alert oriented no asterixis. No focal motor deficit. - Labs CBC & Chem 7: 11/13/16 10:56 11/15/16 06:27 Labs: Abnormal Lab Results - Last 24 Hours (Table) 11/14/16 11/15/16 Range/Units 06:03 06:27 Carbon Dioxide 21 L (22-30) mmol/L BUN 68 H (9-20) mg/dL Creatinine 13.58 H* (0.66-1.25) mg/dL Glucose 106 H (74-99) mg/dL Calcium 8.3 L (8.4-10.2) mg/dL Total Protein (PEP) 5.9 L (6.2-8.2) g/dL Assessment and Plan Plan: Impression. 1. ATN secondary to intravascular 1 depletion from vomiting and use of nonsteroidals. Had one dialysis on 11/14/2016. After that he is making fair amount of urine. Currently not uremic except for fatigue. Will hold off dialysis today and reassess with a chest x-ray and see if he has any congestive heart failure. 2. History of seizure disorder but no suggestion of a rhabdomyolysis. 3. Bilateral fine crackles rule out congestive heart failure. 4. Mild degree of gap acidosis secondary to renal failure improving bicarb is 21. 5. Hyperphosphatemia secondary to acute kidney injury on calcium acetate 6. 2 g of proteinuria, ILDEFONSO negative C3-C4 normal. We will re-assess this. Recommendation. Will hold off dialysis, unless there is congestive heart failure on the chest x- ray. Obtain chest x-ray. Possible congestive heart failure Repeat his protein to creatinine ratio in 2-3 days. Maintain sodium bicarb and adjust dose in a day or 2 based on serum bicarb Watch phosphorus
--- NOTE | 2016-11-15 09:16 | XR ---
EXAMINATION TYPE: XR chest 2V DATE OF EXAM: 11/15/2016 COMPARISON: 05/23/2015 HISTORY: 36-year-old male CHF, kidney failure TECHNIQUE: Frontal and lateral views FINDINGS: Heart is normal size. Mild interstitial prominence with patchy bibasilar opacities. Suggestion of sma ll effusions on the lateral view. IMPRESSION: Mild interstitial prominence, patchy bibasilar opacities, and suggestion of small effusions on the la teral view. Fluid overload with pulmonary vascular congestion not excluded. Correlate to exclude biba silar infiltrates.
[2016-11-15] MEDS: carBAMazepine 200 MG TAB PO SCH ×2 (12:58→20:58)
[2016-11-15] MEDS: ENOXAPARIN 30 MG/0.3 ML SYRINGE SQ SCH (12:59)
[2016-11-15] MEDS: levETIRAcetam 500 MG TAB PO SCH (13:00)
[2016-11-15] MEDS: SODIUM BICARBONATE TAB 650 MG TAB PO SCH ×3 (13:01→20:58)
[2016-11-15] MEDS: amLODIPine 5 MG TAB PO SCH (13:02)
--- NOTE | 2016-11-15 17:55 | P.PN ---
Subjective This is a 36-year-old gentleman with history of generalized seizures maintain on tegretol and keepra, apparently has had prolonged period of seizures on last Thursday. Patient however went AGAINST MEDICAL ADVICE home. Thereafter patient has not been his usual self according to his fiance was a bedside. Patient has a long history of seizure disorder and depression. Patient states that he has diffuse abdominal pain no other problems reported. Patient apparently has not been able to tolerate any oral intake and has been vomiting significantly over the same period of time Patient came to the hospital was noted to have a significantly elevated renal function which is new from last Thursday. Patient was noted to have an anion gap metabolic acidosis which was also noted in the laboratory data done last week Patient denies using any illicit drugs or graft urine drug screen was noted to be positive for opiates and marijuana No fevers headaches blurry vision nausea chest pain diarrhea lower extremity edema next tetanus is reported Patient name complaints are some difficulty breathing 77 2016 States that his breathing is improved today Denies having any headaches blurry vision nausea vomiting diarrhea does have intermittent episodes of queasiness however is able to tolerate breakfast today 11/15/2016 States to be doing better today Underwent one session of hemodialysis had a femoral temporary dialysis catheter No fevers chills nausea vomiting is reported states that he had neck pain however is improved overnight Objective - Vital Signs Vital signs: Vital Signs Temp 98.5 F 11/15/16 08:00 Pulse 89 11/15/16 16:00 Resp 16 11/15/16 16:00 BP 178/113 11/15/16 16:00 Pulse Ox 96 11/15/16 16:00 Intake & Output 11/14/16 11/15/16 11/15/16 18:59 06:59 18:59 Intake Total 520 550 200 Output Total 500 250 300 Balance 20 300 -100 Weight 101.7 kg 101.7 kg Intake: IV 100 550 Sodium Chloride 0.9% 1, 550 000 ml @ 50 mls/hr IV . Q20H [facility] Rx#:[id number] Oral 420 200 Output: Urine 500 250 250 Emesis 50 Other: Voiding Method Urinal Urinal Urinal # Voids 2 1 1 - Exam Physical exam Gen. appearance oriented 3 in no distress Neck is supple no JVD Lungs good air entry clear to auscultation no rhonchi or wheezing Heart S1-S2 heard regular rate and rhythm no murmurs appreciated Abdomen is soft nontender no organomegaly bowel sounds are intact Neurologically cranial nerves II-12 grossly intact no focal motor or sensory deficits noted Skin no abnormalities appreciated - Labs CBC & Chem 7: 11/13/16 10:56 11/15/16 06:27 Labs: Abnormal Lab Results - Last 24 Hours (Table) 11/15/16 Range/Units 06:27 Carbon Dioxide 21 L (22-30) mmol/L BUN 68 H (9-20) mg/dL Creatinine 13.58 H* (0.66-1.25) mg/dL Glucose 106 H (74-99) mg/dL Calcium 8.3 L (8.4-10.2) mg/dL Assessment and Plan Plan: #1 acute kidney injury unknown etiology #2 seizure disorder with prolonged seizure episode a week ago #3 anxiety #4 history of depression Plan Underwent one session of hemodialysis Continue ongoing care continue monitoring labs Clinically does not appear to be in fluid overload
[2016-11-15] MEDS: hydrALAZINE HCL 20 MG/ML 1 ML VIAL IVP PRN (21:07)
[2016-11-16] MEDS: NITROGLYCERIN OINT 1 INCH/GM PACKET TOPICAL SCH ×5 (04:24→22:26)
[2016-11-16] MEDS: ONDANSETRON 4 MG/2 ML VIAL IVP PRN ×2 (05:06→17:39)
[2016-11-16] MEDS: ACETAMINOPHEN TAB 325 MG TAB PO PRN ×2 (05:15→19:48)
[2016-11-16] MEDS: amLODIPine 5 MG TAB PO SCH (06:10)
[2016-11-16 06:21] LABS: Calcium 8.6 mg/dL (8.4-10.2); Potassium 4.6 mmol/L (3.5-5.1); Total Bilirubin 0.7 mg/dL (0.2-1.3); Total Protein 5.6 g/dL (6.3-8.2)
[2016-11-16] MEDS: CALCIUM ACETATE 667 MG CAP PO SCH ×3 (06:58→17:40)
[2016-11-16] MEDS: PANTOPRAZOLE 40 MG TABLET PO SCH (06:58)
[2016-11-16 08:04] VITALS: RESP 16
--- NOTE | 2016-11-16 08:26 | P.PN ---
Subjective Principal diagnosis: This is a 36-year-old patient with dialysis dependent acute kidney injury from volume depletion and nonsteroidals. He had his first dialysis day before yesterday. He was not dialyzed yesterday because he started to make more urine. This morning he is feeling somewhat better but very concerned about his high blood pressure which is running in the 190-200 systolic range. Other than his concern for blood pressure he is denying any complaints such as chest pain shortness of breath nausea vomiting. His appetite is back. He is able to walk. He has a right groin Rhys catheter. His urine output has increased to 2400 mL over the last 24 hours. Objective - Vital Signs Vital signs: Vital Signs Temp 98.8 F 11/16/16 04:00 Pulse 87 11/16/16 08:00 Resp 16 11/16/16 08:00 BP 190/112 11/16/16 08:00 Pulse Ox 96 11/16/16 08:00 Intake & Output 11/15/16 11/16/16 11/16/16 18:59 06:59 18:59 Intake Total 500 Output Total 900 1450 200 Balance -400 -1450 -200 Weight 101.7 kg 101.4 kg Intake: IV 300 Sodium Chloride 0.9% 1, 300 000 ml @ 50 mls/hr IV . Q20H [facility] Rx#:[id number] Oral 200 Output: Urine 850 1450 200 Emesis 50 Other: Voiding Method Urinal Urinal # Voids 1 3 On examination is awake alert oriented but very concerned and anxious. HEENT exam no JVP neck is supple. lungs are clear to auscultation percussion good air entry bilaterally Heart sounds are unremarkable no murmur rub gallop. Abdomen soft nontender Extremity exam was trace edema Neurologically awake alert oriented. No focal motor deficit. - Labs CBC & Chem 7: 11/13/16 10:56 11/16/16 05:51 Labs: Abnormal Lab Results - Last 24 Hours (Table) 11/16/16 Range/Units 05:51 Carbon Dioxide 21 L (22-30) mmol/L BUN 66 H (9-20) mg/dL Creatinine 12.30 H* (0.66-1.25) mg/dL Glucose 108 H (74-99) mg/dL Total Protein 5.6 L (6.3-8.2) g/dL Albumin 3.1 L (3.5-5.0) g/dL Assessment and Plan Plan: Impression. 1. ATN secondary to intravascular depletion from vomiting and use of nonsteroidals. Had one dialysis on 11/14/2016. After that he is making fair amount of urine. Subjectively better and Currently not uremic. Urine output is 2350 and creatinine is down. Will hold off dialysis today. 2. Hypertension uncontrolled with possibly fluid overloaded state now. Patient claims she's had high blood pressure since a teenager but he was not on any home medications for blood pressure. 2. History of seizure disorder but no suggestion of a rhabdomyolysis. 3. Bilateral fine crackles rule out congestive heart failure, chest x-ray yesterday 11/15/2016 was not very suggestive . he has history of smoking until recently August 2016 when he quit about 2 months ago. No history of COPD 4. Mild degree of gap acidosis secondary to renal failure improving bicarb is 21.on sodium bicarb orally 5. Hyperphosphatemia secondary to acute kidney injury on calcium acetate 6. 2 g of proteinuria, ILDEFONSO negative C3-C4 normal. We will re-assess this. Recommendation. Will hold off dialysis, Increase Norvasc from 5 mg to 10 mg a day. Add Lasix 40 mg IV 1 dose. I have instructed nursing staff to call me with blood pressure reading in about 4-6 hours. We can remove the Rhys catheter tomorrow if creatinine continues to improve and urine output is good. Possible discharge tomorrow to be followed up in the office. He will need workup for proteinuria if it persists Maintain sodium bicarb and adjust dose in a day or 2 based on serum bicarb Watch phosphorus Patient has been reassured that we will workup his high blood pressure if it persists
[2016-11-16] MEDS ORDERED: FUROSEMIDE 10 MG/ML 4 ML VIAL IV STA (09:21)
[2016-11-16] MEDS: carBAMazepine 200 MG TAB PO SCH ×2 (09:46→19:48)
[2016-11-16] MEDS: amLODIPine 10 MG TAB PO SCH (09:46)
[2016-11-16] MEDS: SODIUM BICARBONATE TAB 650 MG TAB PO SCH ×3 (09:46→19:48)
[2016-11-16] MEDS: ENOXAPARIN 30 MG/0.3 ML SYRINGE SQ SCH (09:47)
[2016-11-16] MEDS: levETIRAcetam 500 MG TAB PO SCH (09:48)
[2016-11-16] MEDS: hydrALAZINE HCL 20 MG/ML 1 ML VIAL IVP PRN ×2 (12:58→19:48)
--- NOTE | 2016-11-16 15:48 | P.PN ---
Subjective This is a 36-year-old gentleman with history of generalized seizures maintain on tegretol and keepra, apparently has had prolonged period of seizures on last Thursday. Patient however went AGAINST MEDICAL ADVICE home. Thereafter patient has not been his usual self according to his fiance was a bedside. Patient has a long history of seizure disorder and depression. Patient states that he has diffuse abdominal pain no other problems reported. Patient apparently has not been able to tolerate any oral intake and has been vomiting significantly over the same period of time Patient came to the hospital was noted to have a significantly elevated renal function which is new from last Thursday. Patient was noted to have an anion gap metabolic acidosis which was also noted in the laboratory data done last week Patient denies using any illicit drugs or graft urine drug screen was noted to be positive for opiates and marijuana No fevers headaches blurry vision nausea chest pain diarrhea lower extremity edema next tetanus is reported Patient name complaints are some difficulty breathing 2016 States that his breathing is improved today Denies having any headaches blurry vision nausea vomiting diarrhea does have intermittent episodes of queasiness however is able to tolerate breakfast today 11/15/2016 States to be doing better today Underwent one session of hemodialysis had a femoral temporary dialysis catheter No fevers chills nausea vomiting is reported states that he had neck pain however is improved overnight 09/16/16 doing well no new overnight events Objective - Vital Signs Vital signs: Vital Signs Temp 98.8 F 11/16/16 04:00 Pulse 87 11/16/16 08:00 Resp 16 11/16/16 08:00 BP 190/112 11/16/16 08:00 Pulse Ox 96 11/16/16 08:00 Intake & Output 11/15/16 11/16/16 11/16/16 18:59 06:59 18:59 Intake Total 500 480 Output Total 900 1450 1050 Balance -400 -1450 -570 Weight 101.7 kg 101.4 kg Intake: IV 300 Sodium Chloride 0.9% 1, 300 000 ml @ 50 mls/hr IV . Q20H [facility] Rx#:[id number] Oral 200 480 Output: Urine 850 1450 1050 Emesis 50 Other: Voiding Method Urinal Urinal Urinal # Voids 1 3 3 # Bowel Movements 0 - Exam Physical exam Gen. appearance oriented 3 in no distress Neck is supple no JVD Lungs good air entry clear to auscultation no rhonchi or wheezing trace crackles at the bases Heart S1-S2 heard regular rate and rhythm no murmurs appreciated Abdomen is soft nontender no organomegaly bowel sounds are intact Neurologically cranial nerves II-12 grossly intact no focal motor or sensory deficits noted Skin no abnormalities appreciated - Labs CBC & Chem 7: 11/13/16 10:56 11/16/16 05:51 Labs: Abnormal Lab Results - Last 24 Hours (Table) 11/16/16 Range/Units 05:51 Carbon Dioxide 21 L (22-30) mmol/L BUN 66 H (9-20) mg/dL Creatinine 12.30 H* (0.66-1.25) mg/dL Glucose 108 H (74-99) mg/dL Total Protein 5.6 L (6.3-8.2) g/dL Albumin 3.1 L (3.5-5.0) g/dL Assessment and Plan Plan: #1 acute kidney injury unknown etiology #2 seizure disorder with prolonged seizure episode a week ago #3 anxiety #4 history of depression Plan Underwent one session of hemodialysis Continue ongoing care continue monitoring labs one dose of lasix after a long discussion concern for pseudoseizures, describes aura and being awake during some seizure episodes and having another type with grand mal type defer to outpatient referral to a epilepsy specialist continue monitering
[2016-11-17] MEDS: NITROGLYCERIN OINT 1 INCH/GM PACKET TOPICAL SCH ×2 (05:39→12:29)
[2016-11-17] MEDS: CALCIUM ACETATE 667 MG CAP PO SCH ×2 (06:40→12:29)
[2016-11-17] MEDS: PANTOPRAZOLE 40 MG TABLET PO SCH (06:40)
[2016-11-17] MEDS: ENOXAPARIN 30 MG/0.3 ML SYRINGE SQ SCH (08:33)
[2016-11-17] MEDS: SODIUM BICARBONATE TAB 650 MG TAB PO SCH (08:33)
[2016-11-17] MEDS: carBAMazepine 200 MG TAB PO SCH (08:33)
[2016-11-17] MEDS: amLODIPine 10 MG TAB PO SCH (08:34)
[2016-11-17] MEDS: levETIRAcetam 500 MG TAB PO SCH (08:34)
[2016-11-17] MEDS: ONDANSETRON 4 MG/2 ML VIAL IVP PRN (08:43)
[2016-11-17] MEDS ORDERED: CARVEDILOL 6.25 MG TAB PO SCH (11:00)
[2016-11-17 11:05] VITALS: BP 184/113; PULSE 99; TEMP 98
[2016-11-17 12:00] LABS: Calcium 9.3 mg/dL (8.4-10.2); Potassium 4.5 mmol/L (3.5-5.1)
--- NOTE | 2016-11-17 18:23 | P.DS ---
Providers Date of admission: 11/13/16 13:11 Attending physician: Nicolás Burks MD Consults: 11/13/16 13:13 Consult Physician Urgent Consulting Provider: Sravan Wilkinosn Consult Reason/Comments: hugo Do you want consulting provider notified?: Already Contacted 11/14/16 09:38 Consult Physician Stat Consulting Provider: Vikash Shankar Consult Reason/Comments: temporary dialysis cath Do you want consulting provider notified?: Yes Primary care physician: [facility] Course: This is a 36-year-old gentleman with history of generalized seizures maintain on tegretol and keepra, apparently has had prolonged period of seizures on last Thursday. Patient however went AGAINST MEDICAL ADVICE home. Thereafter patient has not been his usual self according to his fiance was a bedside. Patient has a long history of seizure disorder and depression. Patient states that he has diffuse abdominal pain no other problems reported. Patient apparently has not been able to tolerate any oral intake and has been vomiting significantly over the same period of time Patient came to the hospital was noted to have a significantly elevated renal function which is new from last Thursday. Patient was noted to have an anion gap metabolic acidosis which was also noted in the laboratory data done last week Patient denies using any illicit drugs or graft urine drug screen was noted to be positive for opiates and marijuana No fevers headaches blurry vision nausea chest pain diarrhea lower extremity edema next tetanus is reported Patient name complaints are some difficulty breathing 2016 States that his breathing is improved today Denies having any headaches blurry vision nausea vomiting diarrhea does have intermittent episodes of queasiness however is able to tolerate breakfast today 11/15/2016 States to be doing better today Underwent one session of hemodialysis had a femoral temporary dialysis catheter No fevers chills nausea vomiting is reported states that he had neck pain however is improved overnight 11/16/16 doing well no new overnight events 11/17/2016 Patient is doing well is able to ambulate denies having difficulty breathing nausea vomiting or diarrhea - Exam Physical exam Gen. appearance oriented 3 in no distress Neck is supple no JVD Lungs good air entry clear to auscultation no rhonchi or wheezing trace crackles at the bases Heart S1-S2 heard regular rate and rhythm no murmurs appreciated Abdomen is soft nontender no organomegaly bowel sounds are intact Neurologically cranial nerves II-12 grossly intact no focal motor or sensory deficits noted Skin no abnormalities appreciated #1 acute kidney injury unknown etiology #2 seizure disorder with prolonged seizure episode a week ago #3 anxiety #4 history of depression Catheter will be discontinued Patient is to follow-up with Dr. Wilkinson in about a week Repeat labs appear to be improved Fluid status appears to be stable on physical exam Amended the patient to follow-up with Dr. Márquez Patient Condition at Discharge: Fair Plan - Discharge Summary New Discharge Prescriptions: New amLODIPine [Norvasc] 10 mg PO DAILY #30 tab Calcium Acetate [PhosLo] 667 mg PO TID-W/MEALS #30 cap carBAMazepine [TEGretol] 400 mg PO BID #60 tab Carvedilol [Coreg] 6.25 mg PO BID-W/MEALS #30 tab Sodium Bicarbonate Tab 1,300 mg PO TID #30 tab Continue carBAMazepine [TEGretol XR] 100 mg PO Q12H carBAMazepine [TEGretol XR] 400 mg PO BID levETIRAcetam [Keppra] 1,500 mg PO BID Discharge Medication List carBAMazepine [TEGretol XR] 100 mg PO Q12H 11/05/16 [History] carBAMazepine [TEGretol XR] 400 mg PO BID 11/05/16 [History] levETIRAcetam [Keppra] 1,500 mg PO BID 11/13/16 [History] Calcium Acetate [PhosLo] 667 mg PO TID-W/MEALS #30 cap 11/17/16 [Rx] Carvedilol [Coreg] 6.25 mg PO BID-W/MEALS #30 tab 11/17/16 [Rx] Sodium Bicarbonate Tab 1,300 mg PO TID #30 tab 11/17/16 [Rx] amLODIPine [Norvasc] 10 mg PO DAILY #30 tab 11/17/16 [Rx] carBAMazepine [TEGretol] 400 mg PO BID #60 tab 11/17/16 [Rx] Follow up Appointment(s)/Referral(s): Charo Watson MD [STAFF PHYSICIAN] - 1 Week (office will call with an appt) Sravan Wilkinson DO [STAFF PHYSICIAN] - 1 Week (office will call [facility] an appt ) Discharge Disposition: HOME SELF-CARE
--- NOTE | 2016-11-18 09:42 | PN ---
The patient is seen for follow up for acute kidney injury. He has received temporary hemodialysis and has not been dialyzed since 11/14/2016. That was his only treatment. His renal function has started to improve with serum creatinine now down to 12.3 from yesterday from 18.7 on initial admission. Patient wants to go home. There is no evidence of obstructive uropathy. His blood pressure has been running on the high side. He has been refusing to take oral medications. On examination today, blood pressure 184/113, heart rate 99 per minute. he is afebrile. Examination of the heart: S1, S2. Examination of the lungs: Bilateral breath sounds are heard. Abdomen is soft, nontender. Examination of lower extremities shows no evidence of edema. COORDINATOR OF PLACEMENT exam is grossly intact. Patient is moving all four extremities. Labs are not available from today. Serum creatinine was 12.3 mg/dL yesterday. ASSESSMENT: 1. Acute kidney injury most likely acute tubular necrosis. Urine eosinophils was 0. Renal function has been slowly improving. All serologies are negative thus far. Patient had one treatment of hemodialysis on 11/14/2016. We will repeat his labs today and if his renal function has improved further he could be discharged. The Rhys catheter will need to be discontinued prior to discharge. We will need to see him in the office in about 3 to 4 days time. 2. Uncontrolled hypertension. The patient has been refusing to take medications. I have discussed with him and advised him that he needs to take his Norvasc and I have added Coreg as well to help control his blood pressure better. He is advised to purchase a blood pressure monitor and record his pressures at home since he states his blood pressure is always high in the doctor's office, but runs normal at home. Patient did report that he has not checked it at home recently. PLAN: Repeat labs today. Possible discharge today with close follow up as outpatient if renal function is improving. SONIA
--- NOTE | 2016-11-18 14:17 | PCN ---
PROCEDURE NOTE: The patient has history chronic renal failure. PROCEDURE: Removal of the dialysis catheter right femoral approach. This patient was seen. Right groin was prep. Drapes were applied in the usual sterile manner. After that stitches were removed and catheter was removed. Pressure was held. Patient tolerated the procedure well. SONIA
== END 2016-11-17 15:48 | disposition home or self-care (01) | DRG 683 ==
LOC: EC 10:24 → 6SEL 13:11
PROVIDERS: ADMIT Internal Medicine; ATTEND Internal Medicine
PROC: 5A1D00Z (ICD-10-PCS; principal; 2016-11-14 17:15)
PROC: 06HM33Z Insertion of Infusion Device into Right Femoral Vein, Percutaneous Approach (ICD-10-PCS; 2016-11-14 17:15)
PROC: 06PYX3Z Removal of Infusion Device from Lower Vein, External Approach (ICD-10-PCS; 2016-11-17)
DX: N17.0 Acute kidney failure with tubular necrosis (principal); E87.2 Acidosis; I16.9 Hypertensive crisis, unspecified; G40.909 Epilepsy, unspecified, not intractable, without status epilepticus; E83.39 Other disorders of phosphorus metabolism; E86.9 Volume depletion, unspecified; I10 Essential (primary) hypertension; T39.315A Adverse effect of propionic acid derivatives, initial encounter; T46.1X6A Underdosing of calcium-channel blockers, initial encounter; I12.9 Hypertensive chronic kidney disease with stage 1 through stage 4 chronic kidney disease, or unspecified chronic kidney disease; R80.9 Proteinuria, unspecified; R11.2 Nausea with vomiting, unspecified; E66.9 Obesity, unspecified; F32.9 Major depressive disorder, single episode, unspecified; M54.9 Dorsalgia, unspecified; F41.9 Anxiety disorder, unspecified; R05 Cough; R10.84 Generalized abdominal pain; F12.10 Cannabis abuse, uncomplicated; F17.200 Nicotine dependence, unspecified, uncomplicated; Z79.899 Other long term (current) drug therapy; Z82.49 Family history of ischemic heart disease and other diseases of the circulatory system; Z91.013 Allergy to seafood; Z91.14 Patient's other noncompliance with medication regimen
CPT/HCPCS: 36415; 36556; 71020; 74022; 76770; 76937; 77001; 80048; 80053; 80074; 80156; 80306; 81001; 82150; 82550; 82553; 82570; 83605; 83690; 83735; 84100; 84156; 84165; 84484; 84600; 85025; 86038; 86160; 86162; 86335; 87205; 90935; 93005; 94640; 94760; 96361; 96374; 96375; 96376; 99285

== ENCOUNTER → 2016-12-23 | Outpatient (CLI) | payer OTHER ==
[2016-12-23 14:47] LABS: ALT 41 U/L (21-72); AST 16 U/L (17-59); Alkaline Phosphatase 62 U/L (38-126); Anion Gap 9 mmol/L; Blood Urea Nitrogen 7 mg/dL (9-20); Calcium 9.2 mg/dL (8.4-10.2); Carbon Dioxide 28 mmol/L (22-30); Chloride 106 mmol/L (98-107); Glucose 92 mg/dL (74-99); Magnesium 1.7 mg/dL (1.6-2.3); Non-African American GFR(MDRD) >60 (>60 ml/min/1.73 sqM); Phosphorous 3.4 mg/dL (2.5-4.5); Potassium 4.3 mmol/L (3.5-5.1); Sodium 143 mmol/L (137-145); Total Bilirubin 0.3 mg/dL (0.2-1.3); Total Protein 6.7 g/dL (6.3-8.2); Uric Acid 4.3 mg/dL (3.5-8.5)
[2016-12-23 15:12] LABS: Appearance,Urine Clear (Clear); Bilirubin,Urine Negative (Negative); Glucose,Urine (UA) Negative (Negative); Ketones,Urine Negative (Negative); Leukocyte Esterase,Urine Negative (Negative); Nitrite,Urine Negative (Negative); PH, Urine 7.5 (5.0-8.0); Protein,Urine Negative (Negative); UA Billing (MACRO vs. MICRO) CHEM; Urobilinogen,Urine <2.0 mg/dL (<2.0)
== END | disposition home or self-care (01) ==
LOC: LABWHC1 13:16
PROVIDERS: ATTEND Internal Medicine Nephrology
DX: N17.9 Acute kidney failure, unspecified (principal)
CPT/HCPCS: 36415; 80053; 81003; 82306; 82570; 83735; 83970; 84100; 84156; 84550

== ENCOUNTER → 2017-07-07 | Outpatient (CLI) | payer OTHER ==
[2017-07-07 11:51] LABS: Anion Gap 12 mmol/L; Blood Urea Nitrogen 14 mg/dL (9-20); Calcium 9.4 mg/dL (8.4-10.2); Carbon Dioxide 28 mmol/L (22-30); Chloride 104 mmol/L (98-107); Glucose 107 mg/dL (74-99); Phosphorus 3.2 mg/dL (2.5-4.5); Potassium 4.3 mmol/L (3.5-5.1); Sodium 144 mmol/L (137-145)
== END | disposition home or self-care (01) ==
LOC: LABWHC1 11:13
PROVIDERS: ATTEND Nurse Practitioner Family
DX: N17.9 Acute kidney failure, unspecified (principal); E83.39 Other disorders of phosphorus metabolism; D64.9 Anemia, unspecified
CPT/HCPCS: 36415; 80048; 84100

== ENCOUNTER → 2017-09-11 | Outpatient (CLI) | payer OTHER ==
[2017-09-11 12:09] LABS: Anion Gap 14 mmol/L; Blood Urea Nitrogen 10 mg/dL (9-20); Calcium 9.2 mg/dL (8.4-10.2); Carbon Dioxide 25 mmol/L (22-30); Chloride 106 mmol/L (98-107); Glucose 136 mg/dL (74-99); Potassium 4.1 mmol/L (3.5-5.1); Sodium 145 mmol/L (137-145)
== END | disposition home or self-care (01) ==
LOC: LABWHC1 11:24
PROVIDERS: ATTEND Nurse Practitioner Family
DX: N17.9 Acute kidney failure, unspecified (principal); E21.3 Hyperparathyroidism, unspecified
CPT/HCPCS: 36415; 80048; 83970

== ENCOUNTER → 2018-03-03 | Outpatient (CLI) | payer OTHER ==
[2018-03-03 18:40] LABS: Anion Gap 10.5 mmol/L (4.00-12.00); Calcium 9.1 mg/dL (8.7-10.3); Carbon Dioxide 24.5 mmol/L (21.6-31.8); Phosphorus 3.1 mg/dL (2.4-5.1); Potassium 4.2 mmol/L (3.5-5.5)
== END | disposition home or self-care (01) ==
LOC: LABWHC1 11:39
PROVIDERS: ATTEND Nurse Practitioner Family
DX: E21.3 Hyperparathyroidism, unspecified (principal); N17.9 Acute kidney failure, unspecified
CPT/HCPCS: 36415; 80048; 83970; 84100

== ENCOUNTER 2018-07-06 22:27 | Emergency (ER) | payer OTHER ==
[2018-07-06] MEDS ORDERED: SODIUM CHLORIDE 0.9% 1,000 ML IV STA (22:36)
[2018-07-06] MEDS ORDERED: PROPOFOL 1,000 MG in EMPTY BAG 1 BAG IV ONE (22:37)
[2018-07-06] MEDS ORDERED: SUCCINYLCHOLINE CHLORIDE VIAL 200 MG/10 ML VIAL IV STA (22:38)
[2018-07-06] MEDS ORDERED: ETOMIDATE 2 MG/ML 10 ML VIAL IVP STA (22:38)
--- NOTE | 2018-07-06 22:39 | ED ---
Seizure HPI - General Stated Complaint: Unresponsive Source: EMS Mode of arrival: EMS Limitations: altered mental status - History of Present Illness Initial Comments: Eliseo is a 38-year-old gentleman with an extensive history of seizure disorder who presents to the emergency department today via EMS unresponsive after apparently having approximately 2 hours of seizure prior to EMS arrival. History is provided by EMS and the patient's family. Patient's family reports that the patient has frequent seizures, usually focal in nature rarely grand mal but he usually resolves and does not seek medical attention. Family reports that around 8:30 PM the patient began having seizure-like activity. They report that this evening he was having grand mal seizures. They expected him to come out of it so they waited to call EMS however he continued to have recurrent seizures and EMS was called shortly after 10 PM. EMS found the patient in an apparent postictal state, snoring and somewhat combative in route to the hospital he had an additional grand mal seizure and was given 5 mg IM Versed prior to arrival here in the emergency department. The family the patient is absolutely compliant with his antiepileptics which include Lamictal, carbamazepine, lithium and Keppra. They report that he saw his neurologist on June 23 and his Lamictal level was increased. They report he smokes marijuana but does no other drugs, they deny any alcohol use. He denies any recent illness or trauma. Girlfriend at bedside reports that the patient's last seizure was Thursday was brief and resolved. - Related Data Home Medications Medication Instructions Recorded Confirmed carBAMazepine [TEGretol XR] 400 mg PO BID 11/05/16 07/06/18 levETIRAcetam [Keppra] 1,500 mg PO BID 11/13/16 07/06/18 Cholecalciferol (Vitamin D3) 2,000 unit PO DAILY 07/06/18 07/06/18 [Vitamin D3] Barlow Carbonate 150 mg PO HS 07/06/18 07/06/18 carBAMazepine [TEGretol XR] 200 mg PO HS 07/06/18 07/06/18 lamoTRIgine [LaMICtal] 25 mg PO QAM 07/06/18 07/06/18 lamoTRIgine [LaMICtal] 100 mg PO BID 07/06/18 07/06/18 Allergies Allergy/AdvReac Type Severity Reaction Status Date / Time morphine Allergy Anaphylaxis Verified 07/06/18 23:20 shellfish derived [Shellfish] Allergy Swelling Verified 07/06/18 23:20 Review of Systems ROS Statement: Those systems with pertinent positive or pertinent negative responses have been documented in the HPI. ROS Other: All systems not noted in ROS Statement are negative. Limitations: ROS unobtainable due to patients medical condition Past Medical History Past Medical History: Seizure Disorder History of Any Multi-Drug Resistant Organisms: None Reported Past Surgical History: No Surgical Hx Reported Past Anesthesia/Blood Transfusion Reactions: No Reported Reaction Past Psychological History: No Psychological Hx Reported Smoking Status: Current every day smoker Past Drug Use History: None Reported - Past Family History Mother Family Medical History: Pulmonary Embolus Father Family Medical History: Hypertension, Myocardial Infarction ([place]) Additional Family Medical History / Comment(s): Father had a [place] under the age of 60yrs. General Exam - General Exam Comments Initial Comments: GENERAL: Patient is well-developed and well-nourished. Patient is unresponsive, snoring respirations, NPA in place HENT: Normocephalic, Atraumatic. NPA in place with mild bleeding EYES: The sclera were anicteric and conjunctiva are injected Pupils 3 mm and reactive PULMONARY: Snoring respirations with good breath sounds bilaterally CARDIOVASCULAR: Tachycardic, regular, warm and well perfused extremities ABDOMEN: Obese, nondistended SKIN: Diaphoretic NEUROLOGIC: Unresponsive MUSCULOSKELETAL: Unable to assess strength, no obvious injuries LYMPHATICS: No significant lymphadenopathy is noted PSYCHIATRIC: Unresponsive Limitations: no limitations Limitations: altered mental status Course Vital Signs 07/06/18 07/06/18 07/06/18 22:30 22:43 22:50 Temperature 96.6 F L Pulse Rate 95 111 H 110 H Respiratory 18 Rate Blood Pressure 177/102 189/120 146/120 O2 Sat by Pulse 99 98 Oximetry 07/06/18 07/06/18 07/06/18 23:00 23:30 23:40 Temperature Pulse Rate 115 H 124 H 113 H Respiratory Rate Blood Pressure 181/110 137/86 159/94 O2 Sat by Pulse 98 96 94 L Oximetry 07/06/18 07/06/18 07/07/18 23:50 23:57 00:00 Temperature 97.6 F Pulse Rate 122 H 109 H 105 H Respiratory 16 Rate Blood Pressure 138/90 138/90 138/90 O2 Sat by Pulse 93 L 94 L 94 L Oximetry 07/07/18 07/07/18 07/07/18 00:10 00:20 00:30 Temperature Pulse Rate 104 H 118 H 95 Respiratory Rate Blood Pressure 134/88 128/85 137/91 O2 Sat by Pulse 94 L 96 Oximetry 07/07/18 07/07/18 00:33 01:06 Temperature 97.6 F Pulse Rate 96 Respiratory 16 Rate Blood Pressure 116/78 114/61 O2 Sat by Pulse 96 Oximetry Procedures - Intubation Sedative: Etomidate Paralytic: Succinylcholine Laryngoscope: Louisa Size: 4 ET Tube Size: 7.5 ET Tube Uncuffed: No Tube Secured Depth (cm): 27 Tube Secured Location: lips Tube Placement Confirmation: visualized tube passing through cords, equal breath sounds bilaterally, no breath sounds over epigastrium Patient Tolerated Procedure: well Intubation Complications: none Medical Decision Making - Medical Decision Making Patient was seen and evaluated immediately upon arrival to the emergency department patient was noted to be in status epilepticus upon arrival he was unresponsive with snoring respirations mildly hypoxic in the mid 80s, respirations were supplemented by bag valve mask while we prepared for intubation. IV access was obtained and labs were obtained. Patient was successfully intubated with a single attempt, 7.5 tube 27 cm at the lip, good breath sounds bilaterally, oxygen saturations improved to 100% Patient did have a brief episode of bradycardia after administration of RSI medications, heart rate decreased from the 120s to the 30s and was sustained for approximately 10-15 seconds, he received no medications and his heart rate improved. He again became bradycardic during intubation I suspect this is due to vagal stimulation, I have a high suspicion the patient is profoundly acidotic with a very sensitive myocardium. Propofol drip was ordered for sedation while intubated as well as seizure management Patient's VBG and ABC results with profound acidosis pH of 6.6 Bicarb infusion was ordered Settings were started with hyperventilation with a respiratory rate of 20 CT head with no acute findings Labs with multiple profound abnormalities likely related to patient's prolonged seizing and likely hypoxia. Patient has leukocytosis with a white count of 25, he is acute kidney injury with a creatinine of 1.8, potassium is within normal limits he's mildly hypernatremic with a sodium of 150, lactic acid has not yet resulted, carbon dioxide is undetectable low Patient follows with neurology at [facility] however has followed with neurology locally and been admitted to multiple hospitals locally at this time family would prefer the patient be transferred to [facility]'s is closer. Patient care was discussed with the ER physician Dr. Alcazar at [facility] who accepts the transfer for status epilepticus and a known epileptic with resulting profound acidosis At the time of transfer some labs are still pending we will plan to fax them to [facility] for continuity of care - Lab Data Result diagrams: 07/06/18 22:31 07/06/18 22:31 Lab Results 07/06/18 07/06/18 07/06/18 Range/Units 00:28 22:31 22:31 WBC (3.8-10.6) k/uL RBC (4.30-5.90) m/uL Hgb (13.0-17.5) gm/dL Hct (39.0-53.0) % MCV (80.0-100.0) fL MCH (25.0-35.0) pg MCHC (31.0-37.0) g/dL RDW (11.5-15.5) % Plt Count (150-450) k/uL Neutrophils % (Manual) % Band Neutrophils % % Lymphocytes % (Manual) % Monocytes % (Manual) % Eosinophils % (Manual) % Neutrophils # (Manual) (1.3-7.7) k/uL Lymphocytes # (Manual) (1.0-4.8) k/uL Monocytes # (Manual) (0-1.0) k/uL Eosinophils # (Manual) (0-0.7) k/uL Nucleated RBCs (0-0) /100 WBC Manual Slide Review Hypochromasia Poikilocytosis Macrocytosis ABG pH (7.35-7.45) ABG pCO2 (35-45) mmHg ABG pO2 (83-108) mmHg ABG HCO3 (21-25) mmol/L ABG Total CO2 (19-24) mmol/L ABG O2 Saturation (94-97) % ABG Base Excess mmol/L Alphonso Test VBG pH 6.60 L* (7.31-7.41) VBG pCO2 37 (37-51) mmHg VBG HCO3 3 L* (24-28) mmol/L FiO2 % Sodium 150 H (137-145) mmol/L Potassium 4.0 (3.5-5.1) mmol/L Chloride 106 (98-107) mmol/L Carbon Dioxide <5 L* (22-30) mmol/L Anion Gap mmol/L BUN 7 L (9-20) mg/dL Creatinine 1.80 H (0.66-1.25) mg/dL Est GFR (CKD-EPI)AfAm 54 (>60 ml/min/1.73 sqM) Est GFR (CKD-EPI)NonAf 47 (>60 ml/min/1.73 sqM) Glucose 286 H (74-99) mg/dL Plasma Lactic Acid Alvin 9.4 H* (0.7-2.0) mmol/L Calcium 10.8 H (8.4-10.2) mg/dL Total Bilirubin 0.3 (0.2-1.3) mg/dL AST 38 (17-59) U/L ALT 24 (21-72) U/L Alkaline Phosphatase 95 (38-126) U/L Total Protein 8.3 H (6.3-8.2) g/dL Albumin 5.2 H (3.5-5.0) g/dL Urine Color Urine Appearance (Clear) Urine pH (5.0-8.0) Ur Specific [place] (1.001-1.035) Urine Protein (Negative) Urine Glucose (UA) (Negative) Urine Ketones (Negative) Urine Blood (Negative) Urine Nitrite (Negative) Urine Bilirubin (Negative) Urine Urobilinogen (<2.0) mg/dL Ur Leukocyte Esterase (Negative) Urine RBC (0-5) /hpf Urine WBC (0-5) /hpf Ur Squamous Epith Cells (0-4) /hpf Urine Bacteria (None) /hpf Urine Mucus (None) /hpf Salicylates <1.0 mg/dL Urine Opiates Screen (NotDetected) Ur Oxycodone Screen (NotDetected) Urine Methadone Screen (NotDetected) Ur Propoxyphene Screen (NotDetected) Acetaminophen <10.0 ug/mL Ur Barbiturates Screen (NotDetected) U Tricyclic Antidepress (NotDetected) Ur Phencyclidine Scrn (NotDetected) Ur Amphetamines Screen (NotDetected) U Methamphetamines Scrn (NotDetected) U Benzodiazepines Scrn (NotDetected) Barlow 0.2 mmol/L Urine Cocaine Screen (NotDetected) U Marijuana (THC) Screen (NotDetected) Serum Alcohol <10 mg/dL 07/06/18 07/06/18 07/06/18 Range/Units 22:31 23:00 23:40 WBC 25.4 H (3.8-10.6) k/uL RBC 5.10 (4.30-5.90) m/uL Hgb 16.1 (13.0-17.5) gm/dL Hct 54.2 H (39.0-53.0) % MCV 106.2 H (80.0-100.0) fL MCH 31.5 (25.0-35.0) pg MCHC 29.7 L (31.0-37.0) g/dL RDW 14.5 (11.5-15.5) % Plt Count 226 (150-450) k/uL Neutrophils % (Manual) 52 % Band Neutrophils % 8 % Lymphocytes % (Manual) 33 % Monocytes % (Manual) 5 % Eosinophils % (Manual) 2 % Neutrophils # (Manual) 15.20 H (1.3-7.7) k/uL Lymphocytes # (Manual) 8.38 H (1.0-4.8) k/uL Monocytes # (Manual) 1.27 H (0-1.0) k/uL Eosinophils # (Manual) 0.51 (0-0.7) k/uL Nucleated RBCs 0 (0-0) /100 WBC Manual Slide Review Performed Hypochromasia Marked Poikilocytosis Slight Macrocytosis Moderate ABG pH <7.00 L* (7.35-7.45) ABG pCO2 41 (35-45) mmHg ABG pO2 >400 H (83-108) mmHg ABG HCO3 5 L* (21-25) mmol/L ABG Total CO2 6 L (19-24) mmol/L ABG O2 Saturation 98.6 H (94-97) % ABG Base Excess -31.6 mmol/L Alphonso Test Yes VBG pH (7.31-7.41) VBG pCO2 (37-51) mmHg VBG HCO3 (24-28) mmol/L FiO2 % Sodium (137-145) mmol/L Potassium (3.5-5.1) mmol/L Chloride (98-107) mmol/L Carbon Dioxide (22-30) mmol/L Anion Gap mmol/L BUN (9-20) mg/dL Creatinine (0.66-1.25) mg/dL Est GFR (CKD-EPI)AfAm (>60 ml/min/1.73 sqM) Est GFR (CKD-EPI)NonAf (>60 ml/min/1.73 sqM) Glucose (74-99) mg/dL Plasma Lactic Acid Alvin (0.7-2.0) mmol/L Calcium (8.4-10.2) mg/dL Total Bilirubin (0.2-1.3) mg/dL AST (17-59) U/L ALT (21-72) U/L Alkaline Phosphatase (38-126) U/L Total Protein (6.3-8.2) g/dL Albumin (3.5-5.0) g/dL Urine Color Colorless Urine Appearance Clear (Clear) Urine pH 5.5 (5.0-8.0) Ur Specific [place] 1.006 (1.001-1.035) Urine Protein 1+ H (Negative) Urine Glucose (UA) 2+ H (Negative) Urine Ketones Negative (Negative) Urine Blood Moderate H (Negative) Urine Nitrite Negative (Negative) Urine Bilirubin Negative (Negative) Urine Urobilinogen <2.0 (<2.0) mg/dL Ur Leukocyte Esterase Negative (Negative) Urine RBC 1 (0-5) /hpf Urine WBC 1 (0-5) /hpf Ur Squamous Epith Cells 1 (0-4) /hpf Urine Bacteria Rare H (None) /hpf Urine Mucus Rare H (None) /hpf Salicylates mg/dL Urine Opiates Screen Not Detected (NotDetected) Ur Oxycodone Screen Not Detected (NotDetected) Urine Methadone Screen Not Detected (NotDetected) Ur Propoxyphene Screen Not Detected (NotDetected) Acetaminophen ug/mL Ur Barbiturates Screen Not Detected (NotDetected) U Tricyclic Antidepress Not Detected (NotDetected) Ur Phencyclidine Scrn Not Detected (NotDetected) Ur Amphetamines Screen Not Detected (NotDetected) U Methamphetamines Scrn Not Detected (NotDetected) U Benzodiazepines Scrn Not Detected (NotDetected) Barlow mmol/L Urine Cocaine Screen Not Detected (NotDetected) U Marijuana (THC) Screen Detected H (NotDetected) Serum Alcohol mg/dL - EKG Data -: EKG Interpreted by Me EKG Comments: EKG obtained at 2233, rate is 85, rhythm is sinus, there is a normal axis, there are normal intervals, MN 176, QRS 110, QTC is 49. There are no acute ST elevations or depressions however there do appear to be hyperacute T waves V4. His no evidence of acute infarction. Critical Care Time Critical Care Time: Yes Total Critical Care Time: 45 Critical Care Time: Critical care time was exclusive of separately billable procedures and treating other patients Critical care was necessary to treat or prevent imminent or life-threatening deterioration. Critical care was time spent personally by me on the following activities: development of treatment plan with patient or surrogate, discussions with consultants, discussions with primary provider, evaluation of patient's response to treatment, examination of patient, obtaining history from patient or surrogate, ordering and performing treatments and interventions, ordering and review of laboratory studies, ordering and review of radiographic studies, pulse oximetry, re-evaluation of patient's condition and review of old charts. Disposition Clinical Impression: Status epilepticus, Lactic acidosis, Leukocytosis, Acute kidney injury, Nonadherence to medication Disposition: OTHER INSTITUTION NOT DEFINED Condition: Serious Referrals: None,Stated [Primary Care Provider] - 1-2 days - Out of Hospital Transfer - Req. Specs Out of Hospital Transfer - Requested Specifics: Medical ICU ([facility])
[2018-07-06 22:54] LABS: VBG PH 6.6 (7.31-7.41)
[2018-07-06 23:07] LABS: ABG Oxygen Saturation 98.6 % (94-97); ABG PCO2 41 mmHg (35-45); ABG PO2 >400 mmHg (83-108); ABG TCO2 6 mmol/L (19-24)
[2018-07-06 23:11] LABS: ABG PH <7.00 (7.35-7.45)
[2018-07-06 23:12] LABS: ABG Base Excess -31.6 mmol/L; ABG HCO3 5 mmol/L (21-25)
[2018-07-06] MEDS ORDERED: DEXTROSE 5% IN WATER 1,000 ML with SODIUM BICARB (1 MEQ/ML) 150 ML IV SCH (23:15)
--- NOTE | 2018-07-06 23:35 | CT ---
EXAM: CT Head Without Intravenous Contrast CLINICAL HISTORY: ITS.REASON CT Reason: seizure activity TECHNIQUE: Axial computed tomography images of the head/brain without intravenous contrast. CTDI is 49 mGy and DLP is 1125 mGy-cm. This CT exam was performed using one or more of the following dose reduction techniques: automated exposure control, adjustment of the mA and/or kV according to patient size, and/or use of iterative reconstruction technique. COMPARISON: No relevant prior studies available. FINDINGS: Brain: No hemorrhage. No edema. Ventricles: Unremarkable. No ventriculomegaly. Bones/joints: No acute fracture. Soft tissues: Unremarkable. Sinuses: No fluid levels. Mastoid air cells: Unremarkable as visualized. No mastoid effusion. IMPRESSION: No acute intracranial findings
--- NOTE | 2018-07-06 23:39 | XR ---
EXAM: XR Chest, 1 View CLINICAL HISTORY: ITS.REASON XR Reason: Intubation TECHNIQUE: Frontal view of the chest. COMPARISON: No relevant prior studies available. FINDINGS: Lungs: Unremarkable. No consolidation. Pleural space: Unremarkable. No pneumothorax. Heart: No pneumomediastinum. Mediastinum: Unremarkable. Bones/joints: No definite fracture. Tubes, lines and devices: Endotracheal tube in place. IMPRESSION: Endotracheal tube in place.
[2018-07-06 23:59] VITALS: RESP 16; TEMP 97.6
[2018-07-06 23:59] LABS: ALT 24 U/L (21-72); AST 38 U/L (17-59); Acetaminophen <10.0 ug/mL; Albumin 5.2 g/dL (3.5-5.0); Alcohol <10 mg/dL; Alkaline Phosphatase 95 U/L (38-126); Blood Urea Nitrogen 7 mg/dL (9-20); Calcium 10.8 mg/dL (8.4-10.2); Chloride 106 mmol/L (98-107); Glucose 286 mg/dL (74-99); Lithium 0.2 mmol/L; Salicylate <1.0 mg/dL; Sodium 150 mmol/L (137-145); Total Bilirubin 0.3 mg/dL (0.2-1.3); Total Protein 8.3 g/dL (6.3-8.2)
[2018-07-07 00:02] LABS: HCT 54.2 % (39.0-53.0); HGB 16.1 gm/dL (13.0-17.5); Hypochromasia Marked; MCH 31.5 pg (25.0-35.0); MCHC 29.7 g/dL (31.0-37.0); MCV 106.2 fL (80.0-100.0); Macrocytosis Moderate; Mean Platelet Volume 11.8; Platelet Count 226 k/uL (150-450); Poikilocytosis Slight; RDW 14.5 % (11.5-15.5); WBC 25.4 k/uL (3.8-10.6)
[2018-07-07 00:09] LABS: Appearance,Urine Clear (Clear); Bacteria,Urine Rare /hpf; Bilirubin,Urine Negative (Negative); Blood,Urine Moderate (Negative); Color,Urine Colorless; Glucose,Urine (UA) 2+ (Negative); Ketones,Urine Negative (Negative); Leukocyte Esterase,Urine Negative (Negative); Mucus,Urine Rare /hpf; Nitrite,Urine Negative (Negative); PH, Urine 5.5 (5.0-8.0); Protein,Urine 1+ (Negative); RBC,Urine 1 /hpf (0-5); Specific Gravity,Urine 1.006 (1.001-1.035); Squamous Epithelial Cell,Urine 1 /hpf (0-4); Urobilinogen,Urine <2.0 mg/dL (<2.0)
[2018-07-07 00:11] LABS: Carbon Dioxide <5 mmol/L (22-30)
[2018-07-07 00:21] LABS: Amphetamine Screen,Urine Not Detected (NotDetected); Barbiturate Screen,Urine Not Detected (NotDetected); Benzodiazepines Screen,Urine Not Detected (NotDetected); Cocaine Screen,Urine Not Detected (NotDetected); Methadone Screen, Urine Not Detected (NotDetected); Opiate Screen,Urine Not Detected (NotDetected); Oxycodone Screen, Urine Not Detected (NotDetected); Phencyclidine Screen,Urine Not Detected (NotDetected); Tricyclic Antidepressant,Urine Not Detected (NotDetected); Urn Cannabinoid Scrn Detected (NotDetected)
[2018-07-07 00:35] VITALS: PULSE 96
[2018-07-07 00:41] LABS: Band Neutrophils % 8 %; Eosinophils # (M) 0.51 k/uL (0-0.7); Lymphocytes # (M) 8.38 k/uL (1.0-4.8); Monocytes # (M) 1.27 k/uL (0-1.0); Neutrophils % (M) 52 %; Nucleated Red Blood Cells 0 /100 WBC (0-0); Total Cells Counted 100
[2018-07-07] MEDS ORDERED: LORazepam 2 MG/ML INJ IV STA (00:41)
[2018-07-07 01:07] VITALS: BP 114/61
== END 2018-07-07 01:20 | disposition short-term general hospital (02) ==
LOC: EC 22:27
DX: N17.9 Acute kidney failure, unspecified (principal); G40.901 Epilepsy, unspecified, not intractable, with status epilepticus; E87.2 Acidosis; E87.0 Hyperosmolality and hypernatremia; Z91.14 Patient's other noncompliance with medication regimen; R00.1 Bradycardia, unspecified; F17.200 Nicotine dependence, unspecified, uncomplicated; Z79.899 Other long term (current) drug therapy; Z88.5 Allergy status to narcotic agent; Z91.013 Allergy to seafood
CPT/HCPCS: 99291; 31500; 96365; 96375; 36415 ×2; 36600; 80053; 82805; 82803; 83605; 80178; 85025; 81001; 80306; 83520 ×2; 71045; 70450; G0480; J0330; J2060; J2704; 80320; 94002

== ENCOUNTER 2018-07-18 20:13 | Emergency (ER) | payer OTHER ==
[2018-07-18 20:53] VITALS: RESP 18; TEMP 98.4
[2018-07-18] MEDS ORDERED: LACOSAMIDE 50 MG TABLET PO STA (21:25)
[2018-07-18 21:33] VITALS: PULSE 86
[2018-07-18] MEDS ORDERED: hydrALAZINE HCL 50 MG TAB PO STA (21:34)
--- NOTE | 2018-07-18 22:22 | ED ---
General Adult HPI - General Chief complaint: Recheck/Abnormal Lab/Rx Stated complaint: Need meds Time Seen by Provider: 07/18/18 20:55 Source: patient, RN notes reviewed, old records reviewed Mode of arrival: ambulatory Limitations: no limitations - History of Present Illness Initial comments: 38-year-old male patient with past medical history of epilepsy was discharged today from [facility] after lengthy stay stemming from significant status epilepticus. Patient is presenting in ED today in order to have a medication administered to him Vimpat 100 mg. patient reports that the pharmacies in the area were unable to fill the prescription, and the other pharmacies were closed. Patient requested he has this medication administered to him so he has not had a seizure. Patient reports that small morning he'll be able to fill these medications. Patient does have the physical prescriptions from [facility] in ED. Patient additionally requested his blood pressure medication be administered him. Patient is asymptomatic. Patient denies any complaints. Systemic: Pt denies fatigue, myalgia, fever/chills, rash. Pt denies weakness, night sweats, weight loss. Neuro: Pt denies headache, visual disturbances, syncope or pre-syncope. HEENT: Pt denies ocular discharge or irritation, otalgia, rhinorrhea, pharyngitis or notable lymphadenopathy. Cardiopulmonary: Pt denies chest pain, SOB, heart palpitations, dyspnea on exertion. Abdominal/GI: Pt denies abdominal pain, n/v/d. : Pt denies dysuria, burning w/ urination, frequency/urgency. Denies new onset urinary or bowel incontinence. MSK: Pt denies myalgia, loss of strength or function in extremities. Neuro: Pt denies new onset weakness, paresthesias. - Related Data Home Medications Medication Instructions Recorded Confirmed carBAMazepine [TEGretol XR] 400 mg PO BID 11/05/16 07/06/18 levETIRAcetam [Keppra] 1,500 mg PO BID 11/13/16 07/06/18 Cholecalciferol (Vitamin D3) 2,000 unit PO DAILY 07/06/18 07/06/18 [Vitamin D3] [place] Carbonate 150 mg PO HS 07/06/18 07/06/18 carBAMazepine [TEGretol XR] 200 mg PO HS 07/06/18 07/06/18 lamoTRIgine [LaMICtal] 25 mg PO QAM 07/06/18 07/06/18 lamoTRIgine [LaMICtal] 100 mg PO BID 07/06/18 07/06/18 Allergies Allergy/AdvReac Type Severity Reaction Status Date / Time morphine Allergy Anaphylaxis Verified 07/18/18 20:53 shellfish derived [Shellfish] Allergy Swelling Verified 07/18/18 20:53 Review of Systems ROS Statement: Those systems with pertinent positive or pertinent negative responses have been documented in the HPI. ROS Other: All systems not noted in ROS Statement are negative. Past Medical History Past Medical History: Hypertension, Seizure Disorder Additional Past Medical History / Comment(s): ERNESTO, acute resp failure, History of Any Multi-Drug Resistant Organisms: None Reported Past Surgical History: No Surgical Hx Reported Additional Past Surgical History / Comment(s): dialysis port, Past Anesthesia/Blood Transfusion Reactions: No Reported Reaction Past Psychological History: No Psychological Hx Reported Smoking Status: Former smoker Past Alcohol Use History: None Reported Past Drug Use History: None Reported - Past Family History Mother Family Medical History: Pulmonary Embolus Father Family Medical History: Hypertension, Myocardial Infarction ([place]) Additional Family Medical History / Comment(s): Father had a [place] under the age of 60yrs. General Exam - General Exam Comments Initial Comments: Constitutional: NAD, AOX3, Pt has pleasant affect. HEENT: NC/AT, trachea midline, neck supple, no lymphadenopathy. Posterior pharynx non erythematous, without exudates. External ears appear normal, without discharge. Mucous membranes moist. Eyes PERRLA, EOM intact. There is no scleral icterus. No pallor noted. Cardiopulmonary: RRR, no murmurs, rubs or gallops, no JVD noted. Lungs CTAB in anterior and posterior gibbons. No peripheral edema. Abdominal exam: Abdomen soft and non-distended. Abdomen non-tender to palpation in all 4 quadrants. Bowel sounds active in LLQ. No hepatosplenomegaly. No ecchymosis Neuro: CN II-XII intact. No nuchal rigidity. MSK: No posterior calf tenderness bilaterally, homans sign negative bilaterally. Posterior tibialis and radial pulse +2 bilaterally. Sensation intact in upper and lower extremities. Full active ROM in upper and lower extremities, 5/5 stregnth. Limitations: no limitations Course Vital Signs 07/18/18 07/18/18 07/18/18 20:48 21:30 22:29 Temperature 98.4 F Pulse Rate 85 86 Respiratory 18 18 Rate Blood Pressure 187/111 179/104 184/111 O2 Sat by Pulse 98 Oximetry Medical Decision Making - Medical Decision Making 38-year-old male patient with past medical history of epilepsy was discharged today from [facility] after lengthy stay stemming from significant status epilepticus. Patient is presenting in ED today in order to have a medication administered to him Vimpat 100 mg. patient reports that the pharmacies in the area were unable to fill the prescription, and the other pharmacies were closed. Patient requested he has this medication administered to him so he has not had a seizure. Patient reports that small morning he'll be able to fill these medications. Patient does have the physical prescriptions from [facility] in ED. Patient additionally requested his blood pressure medication be administered him. Patient is asymptomatic. Patient denies any complaints. Patient vital signs displayed hypertension. Patient ministered home dose of antihypertensive. Patient reports that he has a blood pressure cuff at home he will monitor his blood pressure and return to ER if does not improve or if he develops symptoms. Return precautions discussed, patient verbalized understanding. Patient denies any headaches, changes in vision, paresthesias. Patient will follow-up with primary care provider in 1-2 days for continued evaluation and management medications. Case discussed with Dr. Chew. Disposition Clinical Impression: Medication refill Disposition: HOME SELF-CARE Condition: Stable Instructions (If sedation given, give patient instructions): Medicine Refill (ED) Additional Instructions: Patient to adhere to previously discussed treatment plan and will take medication(s) as directed. Patient to follow up with PCP in 1-2 days. Patient to return to ED if symptoms do not improve. Please monitor blood pressure at home, return to ER if it remains elevated or if new signs or symptoms develop or if condition worsens in any way. Is patient prescribed a controlled substance at d/c from ED?: No Referrals: Anika Oneill MD [Primary Care Provider] - 1-2 days Time of Disposition: 22:21
[2018-07-18 22:30] VITALS: BP 184/111
== END 2018-07-18 22:31 | disposition home or self-care (01) ==
LOC: EC 20:13
DX: Z76.0 Encounter for issue of repeat prescription (principal); I10 Essential (primary) hypertension; G40.901 Epilepsy, unspecified, not intractable, with status epilepticus; Z87.891 Personal history of nicotine dependence; Z88.5 Allergy status to narcotic agent; Z91.013 Allergy to seafood; Z79.899 Other long term (current) drug therapy; Z82.49 Family history of ischemic heart disease and other diseases of the circulatory system; Z87.448 Personal history of other diseases of urinary system; Z95.828 Presence of other vascular implants and grafts
CPT/HCPCS: 99282

== ENCOUNTER → 2021-10-04 | Outpatient (CLI) | payer OTHER ==
[2021-10-04 18:38] LABS: Basophils # (A) 0.05 X 10*3/uL (0.00-0.10); Basophils % (A) 0.6 %; Eosinophils # (A) 0.17 X 10*3/uL (0.04-0.35); Eosinophils % (A) 2.1 %; HCT 44.3 % (39.6-50.0); HGB 14.5 g/dL (13.0-17.0); Immature Grans, Automated 0.2 %; Lymphocytes # (A) 2.09 X 10*3/uL (0.90-5.00); MCH 30.1 pg (27.0-32.0); MCHC 32.7 g/dL (32.0-37.0); MCV 91.9 fL (80.0-97.0); Mean Platelet Volume 11.3 fL (9.5-12.2); Monocytes # (A) 0.71 X 10*3/uL (0.20-1.00); Monocytes % (A) 8.8 %; NRBC Per 100 WBC 0 /100 WBCS (0.0-0.0); Neutrophils # (A) 4.99 X 10*3/uL (1.80-7.70); Neutrophils % (A) 62.3 %; Platelet Count 204 X 10*3/uL (140-440); RBC 4.82 X 10*6/uL (4.40-5.60); RDW 12.4 % (11.5-14.5); WBC 8.03 X 10*3/uL (4.50-10.00)
[2021-10-04 19:18] LABS: ALT 32 U/L (10-49); AST 20 U/L (14-35); African American GFR (CKD) 108.6 (60.0-200.0); Albumin 4.5 g/dL (3.8-4.9); Alkaline Phosphatase 97 U/L (41-126); Calcium 9.4 mg/dL (8.7-10.3); Carbamazepine (Tegretol) 3.9 ug/mL (4.0-12.0); Carbon Dioxide 25.1 mmol/L (20.0-27.5); Chloride 104 mmol/L (96-109); Globulin 2.5 g/dL (1.6-3.3); Glucose 110 mg/dL (70-110); Non-African American GFR(CKD) 93.7 (60.0-200.0); Potassium 4.4 mmol/L (3.5-5.5); Sodium 142 mmol/L (135-145); Total Bilirubin <0.15 mg/dL (0.30-1.20)
== END | disposition home or self-care (01) ==
LOC: LABWHC1 11:42
PROVIDERS: ATTEND Psychiatry & Neurology Neurology
DX: G40.119 Localization-related (focal) (partial) symptomatic epilepsy and epileptic syndromes with simple partial seizures, intractable, without status epilepticus (principal)
CPT/HCPCS: 36415; 80053; 80156; 80175; 80235; 85025